=== PATIENT | female | born 1945 | race Asian ===

== ENCOUNTER → 2020-10-25 12:57 | Outpatient (BNVA) | payer MEDICAID, SELFPAY | PROVIDERS: PCP Internal Medicine; Visit Provider Nurse Practitioner Family ==

== ENCOUNTER 2020-10-30 11:41 | Outpatient (REF) | payer MEDICAID, SELFPAY ==
[2020-10-30 12:17] LABS: MANUAL DIFF FLAG NO
[2020-10-30 12:20] LABS: Basophils Percent Auto 0.6 % (0-2); Eosinophils Absolute Auto 0.3 X10*3/uL (0.0-0.4); Hematocrit 39.8 % (37-47); Hemoglobin 12.9 g/dl (12.0-16.0); Imm Gran Abs Auto 0.01 X10*3/uL (0.00-0.03); Imm Gran Pct Auto 0.2 % (0.0-0.4); Lymphocytes Absolute Auto 2.4 X10*3/uL (1.2-4.9); Lymphocytes Percent Auto 37.1 % (20-40); Mean Corpuscular HGB Conc 32.4 g/dl (31.0-35.0); Mean Corpuscular Hemoglobin 26.6 pg (27.0-33.0); Mean Corpuscular Volume 82.1 fL (80-98); Mean Platelet Volume 9.9 fL (9.4-12.3); Monocytes Absolute Auto 0.5 X10*3/uL (0.1-1.2); Monocytes Percent Auto 7.6 % (2-11); Neutrophils Absolute Auto 3.2 X10*3/uL (2.0-8.3); Neutrophils Percent Auto 49.5 % (45-73); Platelet Count 260 X10*3/uL (160-400); Red Blood Count 4.85 X10*6/uL (4.20-5.50); Red Cell Distribution Width 12.9 % (11.0-16.0); White Blood Count 6.4 X10*3/uL (4.8-10.8)
[2020-10-30 12:46] LABS: Estimated Average Glucose 126 mg/dL
[2020-10-30 12:47] LABS: Alanine Aminotransferase 22 U/L (0-31); Albumin Level 4.5 g/dL (3.5-5.0); Alkaline Phosphatase 59 U/L (39-117); Anion Gap 12 (12-20); Aspartate Amino Transferase 21 U/L (5-31); Bilirubin Total 1.2 mg/dL (0.0-1.0); Blood Urea Nitrogen 16 mg/dL (9-16); Calcium 9.7 mg/dL (8.4-10.2); Carbon Dioxide 32 mmol/L (22-29); Chloride 98 mmol/L (96-108); Cholesterol 210 mg/dL; Estimated Glomerular Filt Rate > 60; Glucose Random 101 mg/dL (60-115); HDL Cholesterol 61 mg/dL; LDL Cholesterol Calculated 117 mg/dl; Potassium 3.5 mmol/L (3.3-5.1); Sodium 138 mmol/L (135-145); Total Protein 7.8 g/dL (6.5-8.0); Triglycerides 161 mg/dL; Uric Acid 9.1 mg/dL (2.4-5.7)
[2020-10-30 13:12] LABS: Free T4 (Free Thyroxine) 1.26 ng/dL (0.71-1.85); Thyroid Stimulating Hormone 0.36 uIU/mL (0.32-4.0); Vitamin D 25-OH Total 39.8 ng/mL (>30)
[2020-10-30 13:28] LABS: Folate > 20.0 ng/mL (> or = 4.0); Vitamin B12 936 pg/mL (200-900)
== END 2020-10-30 11:42 | disposition home or self-care (01) ==
LOC: HO.LAB 11:41
PROVIDERS: PCP Internal Medicine; Visit Provider Internal Medicine
DX: E78.00 Pure hypercholesterolemia, unspecified (principal); R73.02 Impaired glucose tolerance (oral); I10 Essential (primary) hypertension
CPT/HCPCS: 36415; 80053; 80061; 82306; 82607; 82746; 83036; 84439; 84443; 84550; 85025

== ENCOUNTER 2020-12-11 09:01 | Day surgery (SDC) | payer MEDICAID, SELFPAY ==
[2020-12-11 09:12] VITALS: BP 148/72; PULSE 87; RESP 18; TEMP 36.3; O2SAT 99; BMI 25.0
--- NOTE | 2020-12-11 09:12 | HO.ANESPROP2 ---
[facility] Active Problems Active Problems: All Active Problems (Updated 10/09/20 @ 12:03 by Brenda Guadalupe MD) Tubular adenoma of colon (Acute) Impaired glucose tolerance (Acute) Hypercholesterolemia (Acute) HTN (hypertension) (Acute) Past Medical History Medical History GERD (gastroesophageal reflux disease) HTN (hypertension) Hx of osteoporosis Hx of solitary pulmonary nodule Hypercholesterolemia Osteoporosis Ulnar neuropathy Vitamin D deficiency Family History Family History Father Hypertension Mother No problems noted. Brother Enlarged heart Surgical History Surgical History H/O colonoscopy History of appendectomy History of cholecystectomy Social History Social History Household Members: Children Alcohol intake: current Alcohol intake frequency: does not drink Smoking Status: Never smoker Use of substances other than those prescribed or required for medical reasons: No Have you been hit, kicked, punched, or otherwise hurt by someone within the past year? If so, by whom?: No Advance Directives: No Advance Directives Information Provided: Yes Recently lost weight without trying: No Meds Allergies Allergy/AdvReac Type Severity Reaction Status Date / Time No Known Allergies Allergy Verified 10/25/20 12:57 [No Known Allergies*] Active Medications: Current Medications Generic Name Dose Route Start Last Admin Trade Name Freq PRN Reason Stop Dose Admin Lactated Ringer's 1,000 mls @ 50 mls/hr 12/11/20 07:30 Lr IV .Q20H GRECIA Exam Exam Date and Time: December 11, 2020 0912 Airway Mallampati Class: II TM Dist: >3cm Neck ROM: Full Heart: RRR Lungs: CTA Assessment and Plan Assessment Anesthesia Assessment: Anesthesia Plan Discussed and Chart Reviewed Final Anesthetic Review NPO: Yes ASA Class: II Final Preanesthetic Review: Meds/Allgs Chart Reviewed, Consent Obtained/Reviewed and Anes Risks/Benef Reviewed Patient Risk: Low Procedure Risk: Low Anesthetic Plan Anesthetic Plan: MAC: Disposition: Standard PACU
[2020-12-11] MEDS: Lactated Ringers 1,000 ML 50 ML IV (09:23)
--- NOTE | 2020-12-11 09:26 | PC.NURSE ---
40unce of water 0800 wait to 1000
--- NOTE | 2020-12-11 09:38 | MHC.SHP ---
Pre-Procedural Eval Section B Chief Complaint: screening Relevant Family History (Specify if Yes): No Relevant Social History: None Present Medications: see Short Stay Collaborative assessment Medical History: Significant History (GERD (gastroesophageal reflux disease) HTN (hypertension) Hx of osteoporosis Hx of solitary pulmonary nodule Hypercholesterolemia Osteoporosis Ulnar neuropathy Vitamin D deficiency) History of Previous Operations: Relevant previous surgery/procedure and date(s) (appendectoym, cholecystectomy) Allergies: Allergies Allergy/AdvReac Type Severity Reaction Status Date / Time No Known Allergies Allergy Verified 10/25/20 12:57 [No Known Allergies*] Review of Systems Sugical H&P ROS: Negative: Constitution, Cardiovascular, Respiratory, Neurological, Psychiatric, Hem-Onc, Allergic/Immunologic, Gastrointestinal, Genitourinary, Musculoskeletal, Integumentary, Endocrine and Eyes/Ears/Nose/Throat Exam Surgical H&P Exam: Normal: HEENT, Normal: Heart, Normal: Lungs, Normal: Extremities, Normal: Abdomen, Normal: Skin and Normal: Neurological Plan Diagnosis/Plan: Unchanged I have reviewed the history and physical and performed a pertinent physical examination on my patient. No changes have occurred unless specified.
--- NOTE | 2020-12-11 10:45 | PM.OP ---
Brief Operative Note Date of Service: 12/11/20 Pre-op diagnosis: hx of colon polyp Post-op diagnosis: same Procedure: see op note Surgeon: Shani Romero MD Anesthesia: MAC Estimated blood loss (mL): 0 Condition: stable Disposition: PACU
--- NOTE | 2020-12-11 10:46 | P.OP_ITS ---
Operative Note Operative Note Date of Service: 12/11/20 Narrative: Operative Information Procedure Description: Colonoscopy COLONOSCOPY Instrument: Olympus variable stiffness pediatric scope 190L Colonoscopy Monitoring: Vital signs and clinical assessment, continuous EKG monitoring, Pulse oximetry, Carbon Dioxide monitoring and blood pressure monitoring were done throughout the procedure. Colon withdrawal time was 9 minutes. Procedure: The patient was placed in the left lateral decubitis position and pre-procedure medications were administered. After a digital rectal examination of the ano-rectum, the video colonoscope was inserted into the rectum and advanced through the colon to the cecum/TI. The colonoscope was slowly withdrawn in a retrograde panoramic fashion and the colon mucosa was carefully examined including a retroflexed view of the rectum. Findings and interventions are described below. Procedure Difficulty: easy Findings: scattered small diverticula in colon left and right side Terminal Ileum-normal Cecum:normal Ascending Colon: x 3 sessile polyps noted measuring 8-12 mm, 2 removed with cold snare and one with forceps Transverse Colon -normal Descending Colon:normal Sigmoid Colon: normal Rectum: Retroflexion with moderate sized internal hemorrhoids, grade I with skin tag Anorectum - normal Colon preparation: [place] Bowel Preparation Scale Right colon; 2 Transverse colon: 2 Left colon; 2 (0 = Unprepared colon segment with mucosa not seen due to solid stool that cannot be cleared. 1 = Portion of mucosa of the colon segment seen, but other areas of the colon segment not well seen due to staining, residual stool and/or opaque liquid. 2 = Minor amount of residual staining, small fragments of stool and/or opaque liquid, but mucosa of colon segment seen well. 3 = Entire mucosa of colon segment seen well with no residual staining, small fragments of stool or opaque liquid) Impression and Post Procedure Diagnosis: polyps internal hemorrhoids diverticular disease Plan: High fiber diet leaflet Avoid straining at stool, epsom salts and sitz bath, anusol supps or cream as needed Repeat Colonoscopy in 5 years if health allows or earlier if clinically indicated Above findings were reviewed with the patient and relevant handouts were provided if indicated.
[2020-12-11 10:50] VITALS: BP 104/48; PULSE 78; RESP 16; TEMP 36.7; O2SAT 96
[2020-12-11 11:05] VITALS: BP 101/62; PULSE 80; RESP 16; O2SAT 99
== END 2020-12-11 11:46 | disposition home or self-care (01) ==
PROVIDERS: PCP Internal Medicine; Visit Provider Internal Medicine Gastroenterology
PROC: 0DJD8ZZ Inspection of Lower Intestinal Tract, Via Natural or Artificial Opening Endoscopic (ICD-10-PCS; CPT 45378; principal; 2020-12-11 10:00)
DX: Z12.11 Encounter for screening for malignant neoplasm of colon (principal); D12.2 Benign neoplasm of ascending colon; K57.30 Diverticulosis of large intestine without perforation or abscess without bleeding; K64.0 First degree hemorrhoids
CPT/HCPCS: 45385; 45380; 88305

== ENCOUNTER → 2020-12-25 14:02 | Outpatient (BNVA) | payer MEDICAID, SELFPAY | PROVIDERS: PCP Internal Medicine; Visit Provider Nurse Practitioner Family ==

== ENCOUNTER 2021-01-03 09:51 | Outpatient (REF) | payer MEDICAID, SELFPAY ==
[2021-01-03 11:36] LABS: MANUAL DIFF FLAG SCAN; PLT CLUMP 1; SCAN SMEAR FLAG 1
[2021-01-03 11:38] LABS: Basophils Percent Auto 0.8 % (0-2); Eosinophils Absolute Auto 0.1 X10*3/uL (0.0-0.4); Eosinophils Percent Auto 2.3 % (0-4); Hematocrit 41.9 % (37-47); Hemoglobin 13.1 g/dl (12.0-16.0); Lymphocytes Absolute Auto 1.9 X10*3/uL (1.2-4.9); Lymphocytes Percent Auto 39.6 % (20-40); Mean Corpuscular HGB Conc 31.3 g/dl (31.0-35.0); Mean Corpuscular Hemoglobin 26.4 pg (27.0-33.0); Mean Corpuscular Volume 84.5 fL (80-98); Monocytes Absolute Auto 0.4 X10*3/uL (0.1-1.2); Neutrophils Absolute Auto 2.4 X10*3/uL (2.0-8.3); Neutrophils Percent Auto 49.3 % (45-73); Red Blood Count 4.96 X10*6/uL (4.20-5.50); Red Cell Distribution Width 12.7 % (11.0-16.0); White Blood Count 4.9 X10*3/uL (4.8-10.8)
[2021-01-03 11:46] LABS: Estimated Average Glucose 120 mg/dL; Hemoglobin A1C 139.9684 umol/L; Hemoglobin A1c % 5.8 %
[2021-01-03 11:56] LABS: SLIDE REVIEW VERIFIED
[2021-01-03 12:28] LABS: Alanine Aminotransferase 14 U/L (0-31); Albumin Level 4.4 g/dL (3.5-5.0); Alkaline Phosphatase 56 U/L (39-117); Anion Gap 15 (12-20); Aspartate Amino Transferase 17 U/L (5-31); Bilirubin Total 1.1 mg/dL (0.0-1.0); Blood Urea Nitrogen 21 mg/dL (9-16); Calcium 9.6 mg/dL (8.4-10.2); Carbon Dioxide 28 mmol/L (22-29); Chloride 101 mmol/L (96-108); Cholesterol 205 mg/dL; Estimated Glomerular Filt Rate 58; Glucose Random 111 mg/dL (60-115); HDL Cholesterol 59 mg/dL; LDL Cholesterol Calculated 109 mg/dl; Potassium 3.3 mmol/L (3.3-5.1); Sodium 141 mmol/L (135-145); Total Protein 7.6 g/dL (6.5-8.0); Triglycerides 186 mg/dL
[2021-01-03 12:51] LABS: Free T4 (Free Thyroxine) 1.06 ng/dL (0.71-1.85); Thyroid Stimulating Hormone 0.37 uIU/mL (0.32-4.0); Vitamin D 25-OH Total 34.8 ng/mL (>30)
[2021-01-03 12:54] LABS: Vitamin B12 686 pg/mL (200-900)
== END 2021-01-03 09:52 | disposition home or self-care (01) ==
LOC: HO.HMGCLDS 09:51
PROVIDERS: PCP Internal Medicine; Visit Provider Internal Medicine
DX: I10 Essential (primary) hypertension (principal); E78.00 Pure hypercholesterolemia, unspecified; R73.02 Impaired glucose tolerance (oral)
CPT/HCPCS: 36415; 80053; 80061; 82306; 82607; 82746; 83036; 84439; 84443; 85025

== ENCOUNTER 2021-10-16 10:33 | Outpatient (REF) | payer MEDICAID, SELFPAY ==
[2021-10-16 11:29] LABS: Appearance Urine CLEAR; Color Urine YELLOW; Glucose Urine UA NEG (NEG); Leukocyte Esterase Urine 1+ (NEG); Nitrite Urine NEG (NEG); Specific Gravity - Urine 1.025 (1.005-1.025); Urine Blood TRACE (NEG); Urine Ketones NEG (NEG); Urine Protein NEG (NEG-TRACE)
[2021-10-16 12:15] LABS: Bacteria Urine TRACE /LPF; Squamous Epithelial Cell Urine 2+ /LPF
== END 2021-10-16 10:34 | disposition home or self-care (01) ==
LOC: HO.LAB 10:33
PROVIDERS: PCP Internal Medicine; Visit Provider Internal Medicine
DX: I10 Essential (primary) hypertension (principal)
CPT/HCPCS: 81001

== ENCOUNTER → 2021-10-30 08:44 | Outpatient (REF) | payer MEDICAID, SELFPAY ==
--- NOTE | 2021-10-30 11:33 | CA_ITS ---
Acquisition Time: 2021-10-30 08:53:11 Total Exercise Time: 00:04:45 Test Indications: chest pain Medications: Protocol: ANIYAH Max HR: 137 BPM 94% of Pred: 145 BPM Max BP: 168/082 mmHG Max Work Load: 6.7 METS Exercise stress test with exercise 4 min 45 sec of Aniyah protocol, with report of moderate sob, no chest discomfort, with isolated PACs, with normotensive response to exercise, with EKG changes meeting criteria for ischemia, at least [address] depression V4-V5 with gradual improvement in recovery, with slight downslope of ST V3 and V6 in recovery as well. Test reviewed with Dr Walker. Message sent to Dr Guadalupe with recommendation for exercise nuclear stress test for further evaluation. Referred By: Brenda Guadalupe Overread By: LIDIA COLLADO
== END ==
LOC: HO.CARD 08:44
PROVIDERS: PCP Internal Medicine; Visit Provider Internal Medicine
DX: R07.9 Chest pain, unspecified (principal)
CPT/HCPCS: 93017

== ENCOUNTER → 2021-11-21 08:03 | Outpatient (REF) | payer MEDICAID, SELFPAY ==
--- NOTE | ~2021-11-21 | NM_ITS ---
Myocardial perfusion study Indication: Chest pain to evaluate for myocardial ischemia Technique: The patient was brought in for a Lexiscan perfusion study on 11/21/2021. Patient performed low-level exercise and was injected 0.4 mg of Lexiscan intravenously. Within a minute of injection, 25 mCi of sestamibi was given intravenously. Images were obtained using the SPECT gamma camera interlaced with the gating device. Images were obtained in supine position. Resting perfusion study was performed on 11/22/2021. Patient was administered 25 mCi of sestamibi intravenously at rest. Images were then obtained in supine position. Images obtained with and without CT attenuation. Total DLP 73 mGy-cm. Images were processed with the software and compared side to side in short axis, horizontal long axis and vertical long axis views. Findings: The stress perfusion study is suboptimal due to intense diaphragmatic uptake in the retrocardiac area either from as well as normal liver all interference of inferior wall uptake and visualization of reduced uptake throughout myocardium. This showed diffusely reduced uptake throughout the entire myocardium except for the inferior wall, this may be due to interference by subdiaphragmatic uptake. Both on attenuated as well as non attenuated images. The gated study shows normal LV systolic function with calculated LVEF of 63%. LV cavity is normal size. The gated study shows normal systolic wall thickening and contraction of segments. Resting study also shows severely reduced uptake in the basal inferior wall. This shows an attenuated images normal uptake of radiotracer in all segments of LV myocardium.. Gating at rest reveals normal systolic wall motion with ejection fraction at 73%. The findings are consistent with reversible defect on attenuated corrected images, due to stress images being suboptimal due to intense subdiaphragmatic uptake. NM/NM bunny perf SPECT rest & str Impression: 1. Myocardial perfusion imaging study shows nondiagnostic study 2. Gated LVEF is 63% 3. Transient ischemic dilatation not present EKG is nondiagnostic for hernia. Consider alternative imaging such as coronary CTA if there is coronary artery disease
--- NOTE | 2021-11-21 08:07 | CA_ITS ---
Acquisition Time: 2021-11-21 08:11:12 Total Exercise Time: 00:02:00 Test Indications: Abnormal Treadmill Test Medications: AMLODIPINE LISINOPRIL METOPROLOL OMEPRAZOLE SIMVASTATIN Protocol: LEXISCAN Max HR: 122 BPM 84% of Pred: 145 BPM Max BP: 142/066 mmHG Max Work Load: 1.0 METS Pharmacological stress test with Lexiscan injection, while sitting and kicking her legs, without anginal symptoms, without arrythmia, with normotensive response to injection, with nondiagnostic EKG for ischemia. In recovery she reported feeling nausea that was treated with Aminophylline 75mg IVP to reverse Lexiscan with resolution of symptom. Nuclear images pending. Test reviewed with Dr Walker. Referred By: Brenda Guadalupe Overread By: LIDIA COLLADO
== END ==
LOC: HO.CARD 08:03
PROVIDERS: PCP Internal Medicine; Visit Provider Internal Medicine
DX: R07.9 Chest pain, unspecified (principal)
CPT/HCPCS: 78452; 93017; A9500; J0280; J2785

== ENCOUNTER 2022-01-07 09:55 | Outpatient (REF) | payer MEDICAID, SELFPAY ==
[2022-01-07 10:14] LABS: MANUAL DIFF FLAG NO
[2022-01-07 11:07] LABS: Basophils Percent Auto 0.7 % (0-2); Eosinophils Absolute Auto 0.1 X10*3/uL (0.0-0.4); Eosinophils Percent Auto 2.2 % (0-4); Hematocrit 39.3 % (37.0-47.0); Hemoglobin 12.5 g/dl (12.0-16.0); Lymphocytes Absolute Auto 1.4 X10*3/uL (1.2-4.9); Lymphocytes Percent Auto 32.6 % (20-40); Mean Corpuscular HGB Conc 31.8 g/dl (31.0-35.0); Mean Corpuscular Hemoglobin 26.2 pg (27.0-33.0); Mean Corpuscular Volume 82.4 fL (80.0-98.0); Mean Platelet Volume 9.6 fL (9.4-12.3); Monocytes Absolute Auto 0.4 X10*3/uL (0.1-1.2); Monocytes Percent Auto 8.9 % (2-11); Neutrophils Absolute Auto 2.3 x10*3/uL (2.0-8.3); Neutrophils Percent Auto 55.6 % (45-73); Platelet Count 260 X10*3/uL (160-400); Red Blood Count 4.77 X10*6/uL (4.20-5.50); Red Cell Distribution Width 13.2 % (11.0-16.0); White Blood Count 4.1 X10*3/uL (4.8-10.8)
[2022-01-07 11:18] LABS: Estimated Average Glucose 117 mg/dL; Hemoglobin A1c % 5.7 %
[2022-01-07 11:44] LABS: Alanine Aminotransferase 12 U/L (0-31); Albumin Level 4.2 g/dL (3.5-5.0); Alkaline Phosphatase 67 U/L (39-117); Anion Gap 11 (12-20); Aspartate Amino Transferase 17 U/L (5-31); Bilirubin Total 1.1 mg/dL (0.0-1.0); Blood Urea Nitrogen 14 mg/dL (9-16); Calcium 9.5 mg/dL (8.4-10.2); Carbon Dioxide 29 mmol/L (22-29); Chloride 105 mmol/L (96-108); Cholesterol 196 mg/dL; Estimated Glomerular Filt Rate > 60; Glucose Random 112 mg/dL (60-115); HDL Cholesterol 55 mg/dL; LDL Cholesterol Calculated 106 mg/dl; Potassium 3.8 mmol/L (3.3-5.1); Sodium 141 mmol/L (135-145); Total Protein 7.4 g/dL (6.5-8.0); Triglycerides 179 mg/dL
[2022-01-07 11:55] LABS: Free T4 (Free Thyroxine) 1.12 ng/dL (0.71-1.85); Thyroid Stimulating Hormone 0.44 uIU/mL (0.32-4.0); Vitamin D 25-OH Total 36.9 ng/mL (>30)
[2022-01-07 12:10] LABS: Folate 19.8 ng/mL (> or = 4.0); Vitamin B12 520 pg/mL (200-900)
== END 2022-01-07 09:56 | disposition home or self-care (01) ==
LOC: HO.LAB 09:55
PROVIDERS: PCP Internal Medicine; Visit Provider Internal Medicine
DX: E78.00 Pure hypercholesterolemia, unspecified (principal); I10 Essential (primary) hypertension; R73.02 Impaired glucose tolerance (oral)
CPT/HCPCS: 36415; 80053; 80061; 82306; 82607; 82746; 83036; 84439; 84443; 85025

== ENCOUNTER → 2022-01-08 14:10 | Outpatient (BNVA) | payer MEDICAID, SELFPAY | PROVIDERS: PCP Internal Medicine; Referring Provider Internal Medicine; Visit Provider Internal Medicine | DX: R07.2 Precordial pain (principal); R06.02 Shortness of breath; I10 Essential (primary) hypertension | CPT/HCPCS: 93005; 99202 ==

== ENCOUNTER → 2022-02-20 10:20 | Outpatient (REF) | payer MEDICAID, SELFPAY ==
--- NOTE | 2022-02-20 10:27 | CA_ITS ---
Transthoracic Echocardiogram Patient (Last, First, Middle): Tomasa De Souza M Gender: Female Date of : 1945 Age: 77 Procedure Date: 02/20/2022 Procedure Type: Transthoracic Echocardiogram Location: OP Height: 152.4 cm Weight: 61.24 kg BSA: 1.58 m2 Heart Rate: 76 bpm BP: 132 / 70 mmHg Template Inspector: SB Referring MD: Dann Duran MD Symptoms: R07.2 - Precordial pain Study Quality: Adequate ECG Rhythm: Sinus Conclusions: - The left ventricular systolic function is normal. The calculated ejection fraction is 69% by biplane method. - No obvious valvular pathology seen on this study. Findings Left Ventricle Normal left ventricular cavity size. The left ventricular systolic function is normal. The calculated ejection fraction is 69% by biplane method. There is no evidence of regional wall motion abnormalities. Diastolic function is normal for age. There is mild septal asymmetric hypertrophy. LV peak GLS 17..5%. Right Ventricle Normal right ventricular cavity size and systolic function. Atria The left atrium is mildly dilated. The right atrium is normal in size. Aortic Valve There is a normal trileaflet aortic valve. There is no aortic valve stenosis. There is trace (trivial) aortic valve regurgitation. Mitral Valve The mitral valve appears normal. There is trace mitral valve regurgitation. There is no mitral valve stenosis. Pulmonic Valve The pulmonic valve is likely normal. Tricuspid Valve Normal tricuspid valve structure. There is mild tricuspid valve regurgitation. The pulmonary artery systolic pressure is normal. Great Vessels The aortic annulus, sinuses of valsalva, and asc aorta are normal in size. Small plaque is seen in the sino tubular ridge. Venous The inferior vena cava is normal in size and collapses greater than 50% with inspiration. Pericardium/Pleural There is no evidence of pericardial effusion. Prior Study Comparison No prior study available for comparison. Recommendations, Care & Conclusions No obvious valvular pathology seen on this study. Measurements 2D Linear Measurements IVSd: 1.14 0.6-0.9/0.6-1.0 cm LVIDd: 4.04 3.9-5.3/4.2-5.9 cm LVIDd Index: 2.56 2.4-3.2/2.2-3.1 cm/m2 LVIDs: 2.35 2.0-3.6 cm LVPWd: 0.65 0.7-1.1 cm LA Diam: 3.70 2.7-3.8/3.0-4.0 cm LAIDs Index: 2.34 1.5-2.3 cm/m2 LV Mass: 137.61 67-162/88-224 g LV Mass Index: 87.10 43-95/49-115 g/m2 LVOT Diam: 1.80 3.0+(-)1.3 cm 2D Systolic Function EF 4C: 65.50 >55% EF 2C: 72.10 >55% EF BiP: 69.10 >55% Mitral Valve MV Pk E: 0.77 MV PK A: 0.84 MV Decel Time: 214.00 E/A: 0.90 E'Lateral: 7.18 E'Medial: 4.90 E/E' Med: 15.70 E/E' Lat: 10.70 PHT: 63.00 MVA PHT: 3.49 Decel Sargent: 3.61 Aortic Valve AoV Pk Jc: 1.59 AoV Mn Jc: 1.03 AoV VTI: 0.33 AoV Pk Grad: 10.00 Aov Mn Grad: 5.00 MARCIA Cont.VTI: 1.81 LVOT LVOT Pk Jc: 0.99 LVOT Mn Jc: 0.71 LVOT VTI: 0.24 LVOT Pk Grad: 4.00 LVOT Mn Grad: 2.00 LVOT Diam: 1.80 LVOT Area: 2.54 Diastolic Function MV Pk E: 0.77 MV Pk A: 0.84 E/A: 0.90 E'Medial: 4.90 E/E' Med: 15.70 E' Laterial: 7.18 E/E' Lat: 10.70 Right Ventricle TAPSE (mm): 21.70 TVS' Jc: 9.60 Tricuspid Valve TR Pk Jc: 2.48 TR Pk Grad: 25.00 RA Press: 3.00 RVSP: 28.00 Great Vessels Aorta Sinus of Valsalva: 2.87 2.0-3.[address] Ridge: 2.19 1.7-3.4 cm Ao Asc: 2.90 2.1-3.4 cm Pulmonary Valve PV Pk Jc: 0.86 Peak PV Grad: 3.00 Updated in Other Vendor System with Status of Final Dann Duran MD electronically signed on 02/23/2022 1:00:32 PM with status of Final
== END ==
LOC: HO.CARD 10:20
PROVIDERS: PCP Internal Medicine; Visit Provider Internal Medicine
DX: R07.2 Precordial pain (principal)
CPT/HCPCS: 93306; 93356

== ENCOUNTER → 2022-03-19 13:10 | Outpatient (BNVA) | payer MEDICAID, SELFPAY | PROVIDERS: PCP Internal Medicine; Referring Provider Internal Medicine; Visit Provider Nurse Practitioner Family | DX: R07.2 Precordial pain (principal); I10 Essential (primary) hypertension; R93.89 Abnormal findings on diagnostic imaging of other specified body structures | CPT/HCPCS: 99212 ==

== ENCOUNTER 2022-03-29 09:23 | Outpatient (REF) | payer MEDICAID, SELFPAY ==
--- NOTE | ~2022-03-29 | MM_ITS ---
EXAMINATION: BONE DENSITOMETRY CLINICAL INDICATION: Osteoporosis. COMPARISON: Previous BD dated 11/10/2019 and baseline BD dated 07/19/2010. TECHNIQUE: Using a [employer] DXA System (software version: 13.1) manufactured by [employer], dual-energy x-ray absorptiometry was performed of the lumbar spine and left hip. The images are of good technical quality. Summary results are attached. FINDINGS: AP SPINE L1-L4: Current: BMD 0.893 g/cm2, Z-score -0.3, T-score -2.4, osteopenia, 4.2% decrease from previous, 3.1% decrease from baseline (<5% change is not significant). Prior: BMD 0.932 g/cm2. Baseline: BMD 0.922 g/cm2. LEFT FEMUR, NECK: Current: BMD 0.622 g/cm2, Z-score -0.8, T-score -3.0, osteoporosis. Prior: BMD 0.751 g/cm2. Baseline: BMD 0.747 g/cm2. LEFT FEMUR, TOTAL: Current: BMD 0.685 g/cm2, Z-score -0.5, T-score -2.6, osteoporosis, 16.4% decrease from previous, 14.8% decrease from baseline (<5% change is not significant). Prior: BMD 0.819 g/cm2. Baseline: BMD 0.804 g/cm2. IDENTIFIED RISK FACTORS: Menopause, Thiazide. HISTORY OF FRACTURE: None listed. MEDICATIONS: Calcium, vitamin D. MM/XR DEXA axial skeleton IMPRESSION: 1. DIAGNOSIS: Osteoporosis based on the lowest T-score value of -3.0 in the femoral neck applying World Health Organization criteria. 2. 10-YEAR FRACTURE RISK PREDICTION, FRAX: According to the guidelines, FRAX calculation should only be performed on patients in the osteopenia bone density category. Therefore, FRAX was not performed on this patient. 3. Treatment Recommendations: NOF guidelines recommend consideration for treatment in postmenopausal women and men age 50 and older presenting with the following: -A hip or vertebral (clinical or morphometric) fracture. -T-score less than or equal to -2.5 at the femoral neck or spine after appropriate evaluation to exclude secondary causes. -Low bone mass at the hip or spine and a 10-year fracture probability by FRAX of greater than or equal to 3% for hip fracture or greater than or equal to 20% for major osteoporotic fracture based on the [place] adapted WHO algorithm. 4. Other Recommendations: All treatment decisions require clinical judgment and consideration of individual patient factors, including patient preferences, comorbidities, previous drug use, risk factors not captured in the FRAX model (e.g. frailty, falls, vitamin D deficiency, increased bone turnover, interval significant decline in bone density) and possible under or overestimation of fracture risk by FRAX. Additional medical evaluation for secondary cause of low bone mineral density may be appropriate. FUTURE SCAN RECOMMENDATION: People with diagnosed cases of osteoporosis or at high risk for fracture should have regular bone mineral density tests. For patients eligible for Medicare, routine testing is allowed once every 2 years. The testing frequency can be increased to one year for patients who have rapidly progressing disease, those who are receiving or discontinuing medical therapy to restore bone mass, or have additional risk factors.
== END 2022-03-29 09:24 | disposition home or self-care (01) ==
LOC: HO.MAMMO 09:23
PROVIDERS: Visit Provider Internal Medicine
DX: M81.0 Age-related osteoporosis without current pathological fracture (principal); R91.1 Solitary pulmonary nodule
CPT/HCPCS: 77080; 99202

== ENCOUNTER 2022-04-17 09:45 | Outpatient (REF) | payer MEDICAID, SELFPAY ==
--- NOTE | ~2022-04-17 | CT_ITS ---
EXAMINATION: CT CHEST WITHOUT CONTRAST CLINICAL INFORMATION: Pulmonary nodule COMPARISON: Previous chest x-ray most recent February 2019. CT abdomen and pelvis April 2009 TECHNIQUE: Multidetector volumetric CT imaging of the chest was done. Axial MIP volume rendering provided. Sagittal and coronal reformatted images were obtained. This CT examination was performed using dose optimization techniques as appropriate, variously including the following: *Automated exposure control *Adjustment of mA and/or kV according to patient size (this includes techniques or standardized protocols for targeted exams where dose is matched to indication/reason for exam; i.e. extremities or head) *Use of iterative reconstruction technique DLP: 96 mGy-cm FINDINGS: LUNGS: There is a 2 mm calcified left upper lobe nodule axial image 191 series 7. There is a 5 mm calcified left upper lobe nodule axial image 220 series 7. This is a 7 mm noncalcified left upper lobe nodule axial image 273 series 7. MEDIASTINUM: There is a 2 cm nodule in the inferior right thyroid gland. There may be other smaller left thyroid nodules. No enlarged hilar or mediastinal lymph nodes. Normal heart size. Mild coronary artery and thoracic aortic calcification. No pericardial effusion. PLEURA: There is no pleural effusion. No pleural mass or thickening. AXILLA: No lymphadenopathy. UPPER ABDOMEN: 1 cm low-attenuation lesion in the right lobe liver that is stable from 2009 exam probably represents a cyst. There is low-attenuation seen posteriorly in the neck of the pancreas measuring 8 mm. Axial image 49 series 3. This may represent partial volume averaging the adjacent fat. OSSEOUS STRUCTURES: There is a T8 vertebral body hemangioma. CT/CT chest wo con IMPRESSION: Calcified and noncalcified left upper lobe nodules. The largest noncalcified nodule can be going back to oldest chest x-ray from 2018 and is probably unchanged. Mild coronary artery calcification. Stable liver cyst. 8 mm low-attenuation lesion in the neck of the pancreas, question representing partial volume averaging with the adjacent fat. Follow-up CT of the abdomen or MRI of the pancreas recommended. 2 cm right thyroid nodule. Follow-up thyroid ultrasound recommended. Fleischner guidelines were followed.
[2022-04-17 10:37] LABS: MANUAL DIFF FLAG NO
[2022-04-17 10:53] LABS: Basophils Percent Auto 0.7 % (0-2); Eosinophils Absolute Auto 0.1 X10*3/uL (0.0-0.4); Hemoglobin 13.4 g/dl (12.0-16.0); Lymphocytes Absolute Auto 1.9 X10*3/uL (1.2-4.9); Lymphocytes Percent Auto 35.4 % (20-40); Mean Corpuscular HGB Conc 31.9 g/dl (31.0-35.0); Mean Corpuscular Hemoglobin 25.9 pg (27.0-33.0); Mean Corpuscular Volume 81.2 fL (80.0-98.0); Mean Platelet Volume 9.4 fL (9.4-12.3); Monocytes Absolute Auto 0.5 X10*3/uL (0.1-1.2); Monocytes Percent Auto 8.3 % (2-11); Neutrophils Absolute Auto 2.9 x10*3/uL (2.0-8.3); Neutrophils Percent Auto 53.6 % (45-73); Platelet Count 270 X10*3/uL (160-400); Red Blood Count 5.17 X10*6/uL (4.20-5.50); White Blood Count 5.4 X10*3/uL (4.8-10.8)
[2022-04-17 10:54] LABS: Appearance Urine CLEAR; Color Urine STRAW; Glucose Urine UA NEG (NEG); Leukocyte Esterase Urine 2+ (NEG); Nitrite Urine NEG (NEG); Specific Gravity - Urine <= 1.005 (1.005-1.025); Urine Blood TRACE (NEG); Urine Ketones NEG (NEG); Urine Protein NEG (NEG-TRACE)
[2022-04-17 11:12] LABS: Bacteria Urine 1+ /LPF; Squamous Epithelial Cell Urine 1+ /LPF
[2022-04-17 13:57] LABS: Estimated Average Glucose 126 mg/dL; Hemoglobin A1C 149.9689 umol/L
[2022-04-17 14:15] LABS: Thyroid Stimulating Hormone 0.45 uIU/mL (0.32-4.0)
[2022-04-17 14:17] LABS: Alanine Aminotransferase 20 U/L (0-31); Albumin Level 4.6 g/dL (3.5-5.0); Alkaline Phosphatase 74 U/L (39-117); Anion Gap 14 (12-20); Aspartate Amino Transferase 20 U/L (5-31); Bilirubin Total 0.8 mg/dL (0.0-1.0); Blood Urea Nitrogen 16 mg/dL (9-16); Calcium 9.6 mg/dL (8.4-10.2); Carbon Dioxide 29 mmol/L (22-29); Chloride 103 mmol/L (96-108); Cholesterol 229 mg/dL; Estimated Glomerular Filt Rate 56; Glucose Random 108 mg/dL (60-115); HDL Cholesterol 54 mg/dL; LDL Cholesterol Calculated 118 mg/dl; Potassium 3.9 mmol/L (3.3-5.1); Sodium 142 mmol/L (135-145); Total Protein 7.9 g/dL (6.5-8.0); Triglycerides 285 mg/dL
== END 2022-04-17 09:46 | disposition home or self-care (01) ==
LOC: HO.CT 09:45
PROVIDERS: Absent Provider Internal Medicine; PCP Internal Medicine; Visit Provider Internal Medicine Pulmonary Disease
DX: R91.1 Solitary pulmonary nodule (principal); E78.00 Pure hypercholesterolemia, unspecified; R73.02 Impaired glucose tolerance (oral)
CPT/HCPCS: 36415; 71250; 80053; 80061; 81001; 83036; 84443; 85025

== ENCOUNTER 2022-05-09 12:22 | Outpatient (REF) | payer MEDICAID, SELFPAY ==
--- NOTE | ~2022-05-09 | MR_ITS ---
EXAMINATION: MR ABDOMEN WITHOUT AND WITH CONTRAST CLINICAL INFORMATION: Disease of the pancreas COMPARISON: CT abdomen pelvis 06/22/2009, CT chest 04/17/2022 TECHNIQUE: MRI of the abdomen before and after the IV administration of 8.5 mL of Gadavist was obtained using routine sequences. FINDINGS: Please note the exam is technically limited by the [id number] and portions of the liver, spleen, stomach were not included in the [id number] on multiple sequences. LUNG BASES: The visualized lung bases are unremarkable. KIDNEYS AND URETERS: Unremarkable. GALLBLADDER: Surgically absent. LIVER AND BILIARY TREE: Loss of signal on opposed phase imaging compatible with hepatic steatosis. Benign-appearing cyst in the right hepatic lobe. Areas of arterial phase hyperenhancement which are predominantly peripheral although some appear more centrally for example in the right hepatic lobe measuring 0.9 cm, 100:28 and in the right hepatic lobe measuring 0.7 cm, 100:24, which fade to isointensity on delayed phases. Common bile duct measures 1 cm which is within upper limits of normal for the postcholecystectomy state with prominence of the central intrahepatic ducts which may be related to the postcholecystectomy state. PANCREAS: No suspicious pancreatic mass. The previously described questionable pancreatic lesion may have reflected volume averaging. No pancreatic duct dilatation. SPLEEN: Unremarkable ADRENAL GLANDS: Unremarkable GASTROINTESTINAL TRACT: Unremarkable. LYMPH NODES: No lymphadenopathy. VASCULAR: Unremarkable ABDOMINAL WALL: Unremarkable. OSSEOUS STRUCTURES: Grade 1 anterolisthesis of L5 on S1. MR/MR abdomen wo/w con IMPRESSION: No suspicious pancreatic mass. The previously described questionable pancreatic lesion may have reflected volume averaging. Multiple arterially hyperenhancing liver lesions relatively isointense on remainder phases measuring up to 0.9 cm in the right hepatic lobe are favored to reflect perfusional abnormalities or transient hepatic intensity differences. Other differential considerations could potentially include focal nodular hyperplasia or hepatic adenoma. In the absence of any known primary history of malignancy with propensity for hypervascular metastasis to the liver, metastases are considered unlikely. Given the background of hepatic steatosis, recommend a 3 to six-month follow-up MR to assess stability. Common bile duct measures 1 cm which is within upper limits of normal for the postcholecystectomy state with prominence of the central intrahepatic ducts which may be related to the postcholecystectomy state. Exam has technical limitations in portions of the upper abdomen were excluded from the [id number], as detailed above.
== END 2022-05-09 12:23 | disposition home or self-care (01) ==
LOC: HO.MRI 12:22
PROVIDERS: Visit Provider Internal Medicine
DX: K86.9 Disease of pancreas, unspecified (principal)
CPT/HCPCS: 74183; A9585

== ENCOUNTER 2022-06-20 08:45 | Outpatient (REF) | payer MEDICAID, SELFPAY ==
--- NOTE | ~2022-06-20 | MM_ITS ---
EXAMINATION: MM SCREENING DIGITAL BREAST TOMOSYNTHESIS, BILATERAL CLINICAL INFORMATION: Screening. Asymptomatic. The lifetime risk of breast cancer based on the Tyrer-Cuzick Model is 2%. COMPARISON: Mammography: 11/10/2019, 09/10/2018, 12/20/2016 TECHNIQUE: Digital breast tomosynthesis is performed in both the craniocaudal and mediolateral oblique views along with computer-aided detection (CAD). Synthesized 2D images are generated from the tomosynthesis. FINDINGS: There are scattered areas of fibroglandular density (ACR BI-RADS breast composition Category b). There are no significant masses, abnormal calcifications, or other abnormalities. Parenchymal pattern is similar to prior studies. There is no developing density or architectural abnormality. The axilla and skin contours are unremarkable. No significant changes. MM/MM tomosynthesis screening BI IMPRESSION: No mammographic evidence of malignancy. ASSESSMENT: BI-RADS 1: Negative RECOMMENDATION: Routine annual mammography screening. This patient's information was entered into a reminder system with a target due date for their next mammogram.
== END 2022-06-20 08:46 | disposition home or self-care (01) ==
LOC: HO.MAMMO 08:45
PROVIDERS: PCP Internal Medicine; Visit Provider Internal Medicine
DX: Z12.31 Encounter for screening mammogram for malignant neoplasm of breast (principal)
CPT/HCPCS: 36415; 77063; 77067; 82565; 84520

== ENCOUNTER 2022-06-20 09:13 | Outpatient (REF) | payer MEDICAID, SELFPAY ==
[2022-06-20 11:22] LABS: Blood Urea Nitrogen 14 mg/dL (9-16); Estimated Glomerular Filt Rate > 60
== END 2022-06-20 09:14 | disposition home or self-care (01) ==
LOC: HO.LAB 09:13
PROVIDERS: PCP Internal Medicine; Visit Provider Internal Medicine
DX: K86.9 Disease of pancreas, unspecified (principal)
CPT/HCPCS: 36415; 82565; 84520

== ENCOUNTER 2022-06-25 08:51 | Outpatient (REF) | payer MEDICAID, SELFPAY ==
--- NOTE | ~2022-06-25 | CT_ITS ---
EXAMINATION: CT CHEST WITHOUT CONTRAST CLINICAL INFORMATION: Solitary pulmonary nodule. COMPARISON: CT chest 05/04/2022. TECHNIQUE: Multidetector volumetric CT imaging of the chest was done. Axial MIP volume rendering provided. Sagittal and coronal reformatted images were obtained. This CT examination was performed using dose optimization techniques as appropriate, variously including the following: *Automated exposure control *Adjustment of mA and/or kV according to patient size (this includes techniques or standardized protocols for targeted exams where dose is matched to indication/reason for exam; i.e. extremities or head) *Use of iterative reconstruction technique DLP: 103 mGy-cm FINDINGS: OUTDOOR STUDIES DIRECTOR: Well-inflated lungs. LUNGS: There is a 2 mm nodule left upper lobe axial image 144/5, a 5 mm nodule left upper lobe axial image 168/5, and a noncalcified 7 mm nodule left upper lobe laterally axial image 204/5. They are the same size as before. No additional lung lung nodules visualized. The lungs are well expanded without acute consolidation or mass. MEDIASTINUM: The heart size and the great vessels are normal caliber. There is no pericardial effusion. Central trachea and the bronchi are widely patent. There is a hypodense nodule with calcification and mild enlargement of right thyroid lobe. The left thyroid lobe is unremarkable. CORONARY ARTERY CALCIFICATION: There is mild right coronary artery calcification seen. PLEURA: There is no pleural effusion, thickening or calcification. AXILLA: No lymphadenopathy. UPPER ABDOMEN: Visualized liver, spleen, pancreas and bilateral adrenal glands are unremarkable. OSSEOUS STRUCTURES: No aggressive lytic or sclerotic process seen. CT/CT chest wo IV con IMPRESSION: Stable calcified left upper lobe nodules seen. No new nodules visualized. Hypodense nodule with peripheral calcification in right lobe. Fleischner guidelines were followed.
== END 2022-06-25 08:52 | disposition home or self-care (01) ==
LOC: HO.CT 08:51
PROVIDERS: Visit Provider Internal Medicine Pulmonary Disease
DX: R91.1 Solitary pulmonary nodule (principal)
CPT/HCPCS: 71250

== ENCOUNTER → 2022-06-26 10:38 | Outpatient (BNVA) | payer MEDICAID, SELFPAY | PROVIDERS: PCP Internal Medicine; Visit Provider Internal Medicine Pulmonary Disease | DX: R91.1 Solitary pulmonary nodule (principal) | CPT/HCPCS: 99212 ==

== ENCOUNTER 2022-09-06 08:46 | Outpatient (REF) | payer MEDICAID, SELFPAY ==
--- NOTE | ~2022-09-06 | US_ITS ---
EXAMINATION: US THYROID CLINICAL INFORMATION: Nontoxic single thyroid nodule COMPARISON: None TECHNIQUE: Linear transducer grayscale and color Doppler examination with attention to the region of the thyroid. FINDINGS: SIZE: Measurements of the thyroid lobes and nodules are given in sagittal, anteroposterior and transverse dimensions respectively. Right Thyroid Lobe: 5.6 x 1.8 x 2.2 cm, volume 11.6 mL. Parenchyma: The gland echotexture is heterogeneous. Thyroid vascularity is increased. Left Thyroid Lobe: 4.4 x 1.6 x 1.5 cm, volume 5.5 mL. Parenchyma: The gland echotexture is heterogeneous. Thyroid vascularity is increased. Isthmus: 1.1 cm in maximum AP dimension. Estimated total number of nodules greater than or equal to 1 cm: 2. Berry Grower nodules are described as follows: 1. Location: Isthmus. Size: 1.8 x 1.0 x 1.5 cm, volume 1.3 mL. Nodule characteristics: Composition: Mixed cystic and solid (1). Echogenicity: Isoechoic (1). Shape: Not taller than wide (0). Margins: Ill-defined (0). Echogenic Foci: None (0). ACR TI-RADS total points: 2 ACR TI-RADS category: 2 2. Location: Right inferior. Size: 4.1 x 2.1 x 3.4 cm, volume 15.1 mL. Nodule characteristics: Composition: Solid/almost completely solid (2). Echogenicity: Hypoechoic (2). Shape: Not taller than wide (0). Margins: Ill-defined (0). Echogenic Foci: Macrocalcifications (1). Punctate echogenic foci (3). ACR TI-RADS total points: 8 ACR TI-RADS category: 5 3. Location: Right superior. Size: 0.7 x 0.5 x 0.7 cm, volume 0.1 mL. Nodule characteristics: Composition: Mixed cystic and solid (1). Echogenicity: Isoechoic (1). Shape: Not taller than wide (0). Margins: Smooth (0). Echogenic Foci: None (0). ACR TI-RADS total points: 2 ACR TI-RADS category: 2 4. Location: Left superior. Size: 0.8 x 0.4 x 0.5 cm, volume 0.09 mL. Nodule characteristics: Composition: Mixed cystic and solid (1). Echogenicity: Isoechoic (1). Shape: Not taller than wide (0). Margins: Smooth (0). Echogenic Foci: None (0). ACR TI-RADS total points: 2 ACR TI-RADS category: 2 5. Location: Left mid. Size: 0.8 x 0.5 x 0.6 cm, volume 0.1 mL. Nodule characteristics: Composition: Mixed cystic and solid (1). Echogenicity: Isoechoic (1). Shape: Not taller than wide (0). Margins: Smooth (0). Echogenic Foci: None (0). ACR TI-RADS total points: 2 ACR TI-RADS category: 2 NODES: No lymphadenopathy is seen in the tissue surrounding the thyroid gland. US/US thyroid IMPRESSION: A 4.1 cm TR 5 right inferior thyroid nodule meets criteria for tissue sampling. Remainder of thyroid nodules do not meet criteria for follow-up. ACR TI-RADS RECOMMENDATION REFERENCE: Ultrasound-guided fine-needle aspiration, followup ultrasound, no further follow up. * TR1 (0 point) and TR 2 (2 points): No FNA or follow up. * TR3 (3 points): FNA if more than or equal to 2.5 cm in maximum dimension, followup ultrasound in 1, 3 and 5 years if 1.5 to 2.4 cm in maximum dimension. * TR4 (4-6 points): FNA if more than or equal to 1.5 cm in maximum dimension, followup ultrasound in 1, 2, 3 and 5 years if 1 to 1.4 cm in maximum dimension. * TR5 (more than or equal to 7 points): FNA if more than or equal to 1 cm in maximum dimension, followup ultrasound every year for 5 years if 0.5 to 0.9 cm in maximum dimension. * TR3, TR4 or TR5 nodules that are below the size threshold for followup receive no follow up.
== END 2022-09-06 08:47 | disposition home or self-care (01) ==
LOC: HO.HMGCX 08:46
PROVIDERS: PCP Internal Medicine; Visit Provider Internal Medicine
DX: E04.1 Nontoxic single thyroid nodule (principal)
CPT/HCPCS: 76536

== ENCOUNTER → 2022-11-06 08:24 | Outpatient (BNVA) | payer MEDICAID, SELFPAY | PROVIDERS: PCP Internal Medicine; Visit Provider Internal Medicine | DX: E04.2 Nontoxic multinodular goiter (principal) | CPT/HCPCS: 36415; 84439; 84443; 99202 ==

== ENCOUNTER 2022-11-06 09:05 | Outpatient (REF) | payer MEDICAID, SELFPAY ==
[2022-11-06 12:18] LABS: Free T4 (Free Thyroxine) 1.04 ng/dL (0.71-1.85); Thyroid Stimulating Hormone 0.52 uIU/mL (0.32-4.0)
== END 2022-11-06 09:06 | disposition home or self-care (01) ==
LOC: HO.10HDL 09:05
PROVIDERS: Visit Provider Internal Medicine
DX: E04.2 Nontoxic multinodular goiter (principal)
CPT/HCPCS: 36415; 84439; 84443

== ENCOUNTER 2022-11-14 08:38 | Outpatient (REF) | payer MEDICAID, SELFPAY ==
--- NOTE | ~2022-11-14 | MR_ITS ---
EXAMINATION: MR ABDOMEN WITHOUT AND WITH CONTRAST CLINICAL INFORMATION: Liver disease unspecified COMPARISON: MR abdomen 05/09/2022 TECHNIQUE: MRI of the abdomen before and after the IV administration of 5.5 mL of Gadavist was obtained using routine sequences. FINDINGS: LUNG BASES: The visualized lung bases are unremarkable. KIDNEYS AND URETERS: Unremarkable. GALLBLADDER: Status post cholecystectomy. LIVER AND BILIARY TREE: Benign-appearing right hepatic lobe simple cyst. Loss of signal on opposed phase imaging compatible with hepatic steatosis. There is one focus of peripheral arterial phase hyperenhancement in the hepatic dome measuring 7 mm, not previously imaged due to limitations in the [id number] on prior exam however the remainder of predominantly peripheral foci of arterial phase hyper enhancement measuring up to 7 mm in the medial aspect of the right hepatic lobe, 100:49 are similar for slightly decreased in conspicuity with respect to prior, previously 9 mm, and findings favor transient hepatic intensity differences. Similar prominence of the common bile duct and central intrahepatic ducts which may be related to the postcholecystectomy state and patient age. PANCREAS: Unremarkable SPLEEN: Unremarkable ADRENAL GLANDS: Unremarkable GASTROINTESTINAL TRACT: Unremarkable. LYMPH NODES: No lymphadenopathy. VASCULAR: Unremarkable ABDOMINAL WALL: Unremarkable. OSSEOUS STRUCTURES: Grade 1 anterolisthesis of L5 on S1. MR/MR abdomen wo/w con IMPRESSION: There is one focus of peripheral arterial phase hyperenhancement in the hepatic dome measuring 7 mm, not previously imaged due to limitations in the [id number] on prior exam however the remainder of predominantly peripheral foci of arterial phase hyper enhancement measuring up to 7 mm in the medial aspect of the right hepatic lobe are similar or slightly decreased in conspicuity with respect to prior and findings favor transient hepatic intensity differences. Other differential considerations could include focal nodular hyperplasia, less likely hepatic adenoma. Hepatic steatosis. Grade 1 anterolisthesis of L5 on S1. Similar prominence of the common bile duct and central intrahepatic ducts which may be related to the post cholecystectomy state and patient age.
== END 2022-11-14 08:39 | disposition home or self-care (01) ==
LOC: HO.MRI 08:38
PROVIDERS: PCP Internal Medicine; Visit Provider Internal Medicine
DX: K76.9 Liver disease, unspecified (principal)
CPT/HCPCS: 74183; A9585

== ENCOUNTER 2023-02-17 08:46 | Outpatient (REF) | payer MEDICAID, SELFPAY ==
--- NOTE | ~2023-02-17 | CT_ITS ---
EXAMINATION: CT CHEST WITHOUT CONTRAST CLINICAL INFORMATION: Pulmonary nodule COMPARISON: Previous chest CT scans most recent June 2022 TECHNIQUE: Multidetector volumetric CT imaging of the chest was done. Axial MIP volume rendering provided. Sagittal and coronal reformatted images were obtained. This CT examination was performed using dose optimization techniques as appropriate, variously including the following: *Automated exposure control *Adjustment of mA and/or kV according to patient size (this includes techniques or standardized protocols for targeted exams where dose is matched to indication/reason for exam; i.e. extremities or head) *Use of iterative reconstruction technique DLP: 154 mGy-cm FINDINGS: LUNGS: 6 x 8 mm noncalcified left upper lobe nodule axial image 211 series 5 is stable. 4 mm calcified left upper lobe nodule axial image 167 series 5 is stable. 2 mm calcified left upper lobe nodule axial image 145 series 5 is stable. No new pulmonary nodule. MEDIASTINUM: Multiple bilateral thyroid nodules. The largest 1.3 x 2 cm partially calcified right thyroid nodule is stable. This was evaluated with thyroid ultrasound August 2022. Normal heart size. No pericardial effusion. No enlarged hilar or mediastinal lymph nodes. Normal caliber thoracic aorta. CORONARY ARTERY CALCIFICATION: None visualized on this study. PLEURA: There is no pleural effusion. No pleural mass or thickening. AXILLA: No lymphadenopathy. UPPER ABDOMEN: Stable1 cm low-attenuation lesion in the right lobe of the liver axial image 52 series 3 probably representing a cyst. Stable mild extrahepatic biliary duct dilatation. OSSEOUS STRUCTURES: Mild degenerative changes of the spine. CT/CT chest wo IV con IMPRESSION: Stable pulmonary nodules and back to earliest chest CT exam April 2022. Chest CT follow-up in one year recommended. Fleischner guidelines were followed.
== END 2023-02-17 08:47 | disposition home or self-care (01) ==
LOC: HO.CT 08:46
PROVIDERS: PCP Internal Medicine; Visit Provider Internal Medicine Pulmonary Disease
DX: R91.1 Solitary pulmonary nodule (principal)
CPT/HCPCS: 71250

== ENCOUNTER 2023-02-27 09:00 | Outpatient (REF) | payer MEDICAID, SELFPAY ==
--- NOTE | 2023-02-27 09:57 | PM.OP ---
Brief Operative Note Date of Service: 02/27/23 Pre-op diagnosis: Multinodular Thyroid Implants: This is doctor Maria M Torres. This is an ultrasound-guided fine-needle aspiration report. Indication: Multinodular Thyroid Porcedure: Procedure was explained to the patient. Alternatives, the risk and benefits were discussed. Written consent was obtained. A time-out was also obtained. After sterile preparation, 1 ml of 1% lidocaine solution was applied subcutaneously for anesthetic effect. Then Fine-needle aspiration of an isthmus 1.8 cm thyroid nodule was performed using direct ultrasound guidance to confirm accurate needle placement. Four aspirations were made using 27 gauge needles. An additional three aspirations were made using 25 guage needles. Samples were submitted for cytology. One pass was dedicated for [employer] Gene sequencing neon glass bender testing. Then Fine-needle aspiration of a left level III 1.0 cm cervical lymph node was performed using direct ultrasound guidance to confirm accurate needle placement. Four aspirations were made using 27 gauge needles. Samples were submitted for cytology. One pass was dedicated for thyroglobulin washout. The patient tolerated the procedure well. Aftercare instructions were provided. Of note, what was read as a 4.1 cm right lower pole nodule was found to be solely an area of heterogeneity, pseudonodule. No FNA was performed of this. Impression: Uncomplicated fine needle aspiration biopsy of an isthmus 1.8 cm thyroid nodule and a left level III cervical lymph node under ultrasound guidance. Surgeon: Maria M Torres, DO Was an Change Control Manager used for this Procedure?: No Estimated blood loss (mL): 0
[2023-02-27] MEDS: Lidocaine HCl 1 % MPF 5 ML VIAL SUBCUT (13:35)
[2023-03-06 23:13] LABS: FNA Site NG; Thyroglobulin, Fine Needle Asp 0.8 ng/mL
== END 2023-02-27 09:01 | disposition home or self-care (01) ==
LOC: HO.US 09:00
PROVIDERS: PCP Internal Medicine; Visit Provider Internal Medicine
DX: E04.2 Nontoxic multinodular goiter (principal)
CPT/HCPCS: 10005; 10006; 36415; 84432; 88172; 88173; 88177; 88305

== ENCOUNTER → 2023-03-07 08:27 | Outpatient (BNVA) | payer MEDICAID, SELFPAY | PROVIDERS: PCP Internal Medicine; Visit Provider Internal Medicine Pulmonary Disease | DX: R91.1 Solitary pulmonary nodule (principal) | CPT/HCPCS: 99212 ==

== ENCOUNTER → 2023-03-24 08:11 | Outpatient (BNVA) | payer MEDICAID, SELFPAY | PROVIDERS: PCP Internal Medicine; Visit Provider Internal Medicine ==

== ENCOUNTER 2023-04-22 09:04 | Outpatient (REF) | payer MEDICAID, SELFPAY ==
[2023-04-22 09:16] LABS: MANUAL DIFF FLAG NO
[2023-04-22 09:47] LABS: Basophils Absolute Auto 0.1 X10*3/uL (0.0-0.2); Eosinophils Absolute Auto 0.1 X10*3/uL (0.0-0.4); Eosinophils Percent Auto 2.5 % (0-4); Hematocrit 41.2 % (37.0-47.0); Hemoglobin 12.9 g/dl (12.0-16.0); Imm Gran Abs Auto 0.01 X10*3/uL (0.00-0.03); Imm Gran Pct Auto 0.2 % (0.0-0.4); Lymphocytes Absolute Auto 2.1 X10*3/uL (1.2-4.9); Lymphocytes Percent Auto 41.2 % (20-40); Mean Corpuscular HGB Conc 31.3 g/dl (31.0-35.0); Mean Corpuscular Hemoglobin 26.1 pg (27.0-33.0); Mean Corpuscular Volume 83.2 fL (80.0-98.0); Mean Platelet Volume 9.8 fL (9.4-12.3); Monocytes Absolute Auto 0.5 X10*3/uL (0.1-1.2); Neutrophils Absolute Auto 2.4 x10*3/uL (2.0-8.3); Neutrophils Percent Auto 46.1 % (45-73); Platelet Count 258 X10*3/uL (160-400); Red Blood Count 4.95 X10*6/uL (4.20-5.50); White Blood Count 5.2 X10*3/uL (4.8-10.8)
[2023-04-22 10:18] LABS: Appearance Urine Clear; Color Urine Yellow; Glucose Urine UA Negative (Negative); Leukocyte Esterase Urine Trace (Negative); Nitrite Urine Negative (Negative); UMIC TRIGGER UA YES; Urine Blood Negative (Negative); Urine Ketones Negative (Negative); Urine Protein Negative (Neg-Trace)
[2023-04-22 10:19] LABS: Estimated Average Glucose 126 mg/dL
[2023-04-22 10:21] LABS: Bacteria Urine None Seen (None Seen); Hyaline Casts Urine 0-2 /LPF (0-2); RBC Urine 0-2 /HPF (0-2); Squamous Epithelial Cell Urine 0-2 /HPF (0-2); WBC Urine 0-5 /HPF (0-5)
[2023-04-22 11:06] LABS: Alanine Aminotransferase 13 U/L (0-31); Albumin Level 4.1 g/dL (3.5-5.0); Alkaline Phosphatase 56 U/L (39-117); Anion Gap 11 (12-20); Aspartate Amino Transferase 16 U/L (5-31); Bilirubin Total 0.8 mg/dL (0.0-1.0); Blood Urea Nitrogen 16 mg/dL (9-16); Calcium 9.6 mg/dL (8.4-10.2); Carbon Dioxide 28 mmol/L (22-29); Chloride 108 mmol/L (96-108); Cholesterol 214 mg/dL; Estimated Glomerular Filt Rate > 60; Glucose Random 99 mg/dL (60-115); HDL Cholesterol 56 mg/dL; LDL Cholesterol Calculated 122 mg/dl; Sodium 143 mmol/L (135-145); Total Protein 7.5 g/dL (6.5-8.0); Triglycerides 182 mg/dL
[2023-04-22 11:11] LABS: Folate 11.2 ng/mL (> or = 4.0); Vitamin B12 586 pg/mL (200-900)
[2023-04-22 11:12] LABS: Free T4 (Free Thyroxine) 1.04 ng/dL (0.71-1.85); Thyroid Stimulating Hormone 0.91 uIU/mL (0.32-4.0); Vitamin D 25-OH Total 44.5 ng/mL (>30)
== END 2023-04-22 09:05 | disposition home or self-care (01) ==
LOC: HO.LAB 09:04
PROVIDERS: PCP Internal Medicine; Visit Provider Internal Medicine
DX: E78.00 Pure hypercholesterolemia, unspecified (principal); R73.02 Impaired glucose tolerance (oral)
CPT/HCPCS: 36415; 80053; 80061; 81001; 82306; 82607; 82746; 83036; 84439; 84443; 85025

== ENCOUNTER 2023-05-12 13:29 | Outpatient (AMB) | payer MEDICAID, SELFPAY ==
[2023-05-12 13:36] VITALS: BP 134/70; PULSE 75; O2SAT 98; BMI 25.5
--- NOTE | 2023-05-12 13:36 | A.OFFPC_ITS ---
Vital Signs 05/12/23 13:36 Height 4 ft 10 in Weight 122 lb BMI 25.5 BP 134/70 Blood Pressure Location Lt brachial Position Sitting Pulse 75 Pulse Source Pulse Oximeter Pulse Oximetry (%) 98 Oxygen Delivery Method Room Air Intake Visit Reasons: PE Allergies No Known Allergies [No Known Allergies*] Allergy (Verified 05/12/23 13:36) Medication List - Last Reconciled 05/12/23 by Brenda Guadalupe MD alendronate (Fosamax) 70 mg PO QWEEK amlodipine 5 mg PO DAILY 90 days blood pressure monitor (Blood Pressure Kit) As directed cholecalciferol (vitamin D3) 50 mcg PO DAILY ketoconazole 2% 1 appl topical 2XW lisinopril 40 mg PO DAILY metoprolol succinate ER 200 mg PO DAILY omeprazole 20 mg PO DAILY simvastatin 5 mg PO BEDTIME Tobacco use date assessed: 12/03/22 Fall risk assessment: No Falls in past year Last assessed Fall Risk: 05/12/23 Dental Screening Dental Screen Date: 05/12/23 Did you have a dental visit in the last 12 months?: Yes Did you have a dental problem in the last 6 months where you did not have access to dental care?: No Was dental information given to patient?: Patient has dentist HPI PE HPI Details 78-year-old female with multi nodule thyroid, hypertension GERD impa ired glucose tolerance hypercholesterolemia last seen in November 2022. Patient is here for physical exam blood work was requested. Colonoscopy up-to-date, mammogram due October bone density March 2022. With the multinodular thyroid seen by Endocrinology benign yearly ultrasound surveillance. Patient also being seen by Pulmonary for left pulmonary nodule and was advised another CT in 1 year . fall 1 days PFSH Medical History Abnormal finding on CT scan Benign essential hypertension Breast cancer screening by mammogram Chest pain GERD (gastroesophageal reflux disease) GERD (gastroesophageal reflux disease) Hx of osteoporosis Hx of solitary pulmonary nodule Hypercholesterolemia Local reaction to immunization Multinodular thyroid Osteoporosis Overweight (BMI 25.0-29.9) Post-nasal drip Precordial chest pain Pure hypercholesterolemia RLQ abdominal pain SOB (shortness of breath) on exertion Ulnar neuropathy Vitamin D deficiency Surgical History H/O colonoscopy History of appendectomy History of cataract surgery History of cholecystectomy Family History Father Hypertension Mother No problems noted. Brother Enlarged heart Social History (Updated 05/12/23 @ 14:07 by Brenda Guadalupe MD) Household Members: Family, Children and Friend(s) Housing: House Alcohol intake: current Alcohol intake frequency: does not drink Patient Tobacco Use Status: Never used Tobacco Years Smoked: childhood for months e-Cigarette/Vaping Use: Never Used Second Hand Smoke Exposure: No service: No Current occupational status: retired Cognitive needs: No Hearing needs: No Vision needs: No Questionnaire PHQ-9 Over the last 2 weeks, how often have you been bothered by any of the following problems? 1. Little interest or pleasure in doing things: not at all 2. Feeling down, depressed, or hopeless: not at all 3. Trouble falling or staying asleep, or sleeping too much: not at all 4. Feeling tired or having little energy: not at all 5. Poor appetite or overeating: not at all 6. Feeling bad about yourself - or that you are a failure or have let yourself or your family down: not at all 7. Trouble concentrating on things, such as reading the newspaper or watching television: not at all 8. Moving or speaking so slowly that other people could have noticed. Or the opposite - being so fidgety or restless that you have been moving around a lot more than usual: not at all 9. Thoughts that you would be better off or of hurting yourself in some way: not at all Total score: 0 Depression Screening Interpretation: Negative Source: Developed by Drs. Francisco Aguirre, Loretta Deleon, Sedrick Roman and colleagues, with an educational calderon from [employer]. Thrive Questionnaire Date Thrive assessed: 12/03/22 AUDIT C Alcohol Use Questionnaire (AUDIT-C) 1. How often do you have a drink containing alcohol?: Never 2. How many drinks containing alcohol do you have on a typical day when you are drinking?: 1 or 2 3. How often do you have six or more drinks on one occasion?: Never Total Score: 0 Score Reviewed/Action Taken: Yes ALPA-7 AMB Questionnaire ALPA-7 Date ALPA - 7 assessed: 12/03/22 Source: Developed by Drs. Francisco Aguirre, Loretta Deleon, Sedrick Roman and colleagues, with an educational calderon from [employer]. Review of Systems Const Denies poor appetite and Denies weakness Eyes Denies no additional complaints ENT Reports Normal hearing present, Denies dizziness, Denies nasal congestion, Denies tinnitus and Denies sore throat Card Denies chest pain, Denies syncope, Denies rapid heart rate and Denies dyspnea Resp Denies cough and Denies dyspnea GI Denies change in stool character, Reports constipation, Denies diarrhea, Denies nausea and Denies vomiting Denies urinary frequency, Denies difficulty voiding and Denies dysuria Neuro Reports Normal hearing present, Denies confusion, Denies dizziness, Denies syncope and Denies weakness Psych Denies confusion Physical exam (Primary Care) Vital Signs: Last Vital Signs Pulse 75 05/12/23 13:36 BP 134/70 05/12/23 13:36 Pulse Ox 98 05/12/23 13:36 Oxygen Delivery Method Room Air 05/12/23 13:36 Care Plan Goal for BP management: Rectal exam declined BMI result Body Mass Index 25.5 Tobacco/Smoking Status: Tobacco use Status Tobacco use date assessed 12/03/22 05/12/23 13:41 Patient Tobacco Use Status Never used Tobacco 05/12/23 13:41 e-Cigarette/Vaping Use Never Used 05/12/23 13:41 PHQ-9: PHQ-9 Score PHQ-9: Total score 0 05/12/23 13:41 Depression Screening Interpretation: Negative Thrive Assessment: Date of Thrive Assessment Date Thrive assessed 12/03/22 05/12/23 13:41 Const General: No confusion Orientation/consciousness: No confusion HENMT Head: Yes normocephalic Ears: external ears normal and TM's normal bilaterally Face and sinus: Yes normal facial exam Mouth: moist mucous membranes Throat: Yes tonsils normal Eyes Conjunctivae: conjunctivae normal Pupils: Equal, round and reactive pupils present and Pupil accommodation reflex normal Direct Ophthalmoscopy: normal light reflex Neck Neck: No lymphadenopathy Thyroid: Thyroid normal Chest Chest palpation & inspection: normal inspection of the chest Resp Effort & Inspection: normal respiratory effort and no audible wheezes Auscultation: clear to auscultation bilaterally, no crackles, no wheezes and lung sounds not diminished Cardio Rate: regular rate Rhythm: regular rhythm Peripheral pulses: radial pulses present and dorsalis pedis present GI Palpation (GI): no masses Auscultation: normal bowel sounds and normoactive bowel sounds Rectal Exam - Female: deferred Skin General skin exam: no rashes or lesions noted Rashes: no rashes Neuro General: No confusion Cranial nerves: Yes Equal, round and reactive pupils present and Yes Normal hearing present Cognition (Neuro): normal cognition Gait exam (Neuro): Normal gait present Motor exam (neuro): 5/5 motor strength present throughout Deep tendon reflexes (DTR's): Right brachioradialis reflex intensity grade: 2+, Left brachioradialis reflex intensity grade: 2+, Right patellar reflex intensity grade: 2+ and Left patellar reflex intensity grade: 2+ Extrem General: No edema Assessment and Plan Assessment & Plan (1) Annual physical exam: Code(s): Z00.00 - Encounter for general adult medical examination without abnormal findings (2) Hypercholesterolemia: Code(s): E78.00 - Pure hypercholesterolemia, unspecified Plan: Avoid fried foods, chicken skin, eggs, butter margarine, pastries and meat. Be it pork or beef they have a lot of cholesterol LDL goal of less than 130 and triglyceride of less than 150 patient is taking simvastatin 5 mg once a day (3) Impaired glucose tolerance: Code(s): R73.02 - Impaired glucose tolerance (oral) Plan: Decrease the amount of carbohydrate intake, pasta, bread, rice and potatoes are all sugar and that is aside from all the sweet stuff, remember that fruits are good but they are Sweet also. (4) GERD (gastroesophageal reflux disease): Code(s): K21.9 - Gastro-esophageal reflux disease without esophagitis Qualifiers: Esophagitis presence: without esophagitis Qualified Code(s): K21.9 - Gastro-esophageal reflux disease without esophagitis Plan: Avoid the foods that causes that usually spicy foods, tomato products, juices, coffee, soda and foods that your sensitive to. After eating do not lie down, allow 3-4 hours before in lie down. And keep the head of bed above 30 degrees to avoid the acid from going up. (5) Benign essential hypertension: Code(s): I10 - Essential (primary) hypertension Plan: Continue with blood pressure medication. Decrease salt intake and exercise patient is taking amlodipine 5 mg once a day lisinopril 40 mg 1 day and metoprolol 200 mg once a day (6) Age-related osteoporosis without current pathological fracture: Code(s): M81.0 - Age-related osteoporosis without current pathological fracture Plan: Continue with alendronate once a week (7) Pulmonary nodule, left: Code(s): R91.1 - Solitary pulmonary nodule Plan: Patient is being followed up by Pulmonary repeat CT scan in 1 year (8) Thyroid nodule: Comment: 4.1 right inferior August 2022 Code(s): E04.1 - Nontoxic single thyroid nodule Plan: Biopsy negative patient is being followed up by Endocrinology ultrasound next year Medications: New peg 400-propylene glycol (PF) 0.4-0.3 % (Systane Ultra (PF)) 1 drp ophthalmic- Left BID-QID PRN 20 mL 0RF dry eye(s) Coding Level of Care Code Est Pt Prev Care >65y(96777) Diagnoses Annual physical exam Z00.00 Hypercholesterolemia E78.00 Impaired glucose tolerance R73.02 GERD (gastroesophageal reflux disease) K21.9 Esophagitis presence: without esophagitis Benign essential hypertension I10 Age-related osteoporosis without current pathological fracture M81.0 Pulmonary nodule, left R91.1 Thyroid nodule E04.1 Additional Codes PHQ-9 - 74178 - PHQ-9 Billing: Y ([id number])
== END 2023-05-12 14:43 | disposition home or self-care (01) ==
PROVIDERS: PCP Internal Medicine; Visit Provider Internal Medicine
DX: Z00.00 Encounter for general adult medical examination without abnormal findings (principal); I10 Essential (primary) hypertension; K21.9 Gastro-esophageal reflux disease without esophagitis; E04.1 Nontoxic single thyroid nodule; E78.00 Pure hypercholesterolemia, unspecified; R73.02 Impaired glucose tolerance (oral); M81.0 Age-related osteoporosis without current pathological fracture; R91.1 Solitary pulmonary nodule
CPT/HCPCS: 99397

== ENCOUNTER 2023-11-04 08:42 | Outpatient (AMB) | payer MEDICAID, SELFPAY ==
[2023-11-04 09:02] VITALS: BP 134/68; PULSE 65; O2SAT 99; BMI 27.0
--- NOTE | 2023-11-04 09:02 | MHC.PC.OV ---
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 Last seen in April 2023 patient's colonoscopy is due this year mammogram is due and bone density is up-to-date. [facility] Medical History (Updated 11/04/23 @ 10:07 by Brenda Guadalupe MD) Multinodular thyroid Overweight (BMI 25.0-29.9) Abnormal finding on CT scan SOB (shortness of breath) on exertion Precordial chest pain Chest pain Pure hypercholesterolemia Benign essential hypertension Local reaction to immunization Post-nasal drip GERD (gastroesophageal reflux disease) Breast cancer screening by mammogram RLQ abdominal pain Osteoporosis Ulnar neuropathy Hypercholesterolemia Vitamin D deficiency Hx of osteoporosis GERD (gastroesophageal reflux disease) Hx of solitary pulmonary nodule Surgical History History of cataract surgery H/O colonoscopy History of cholecystectomy History of appendectomy Family History Father Hypertension Mother No problems noted. Brother Enlarged heart Social History (Updated 05/12/23 @ 14:07 by Brenda Guadalupe MD) Household Members: Family, Children and Friend(s) Housing: House Alcohol intake: current Alcohol intake frequency: does not drink Patient Tobacco Use Status: Never used Tobacco Years Smoked: childhood for months e-Cigarette/Vaping Use: Never Used Second Hand Smoke Exposure: No service: No Current occupational status: retired Cognitive needs: No Hearing needs: No Vision needs: No Questionnaire Thrive Questionnaire Date Thrive assessed: 12/03/22 AUDIT C Alcohol Use Questionnaire (AUDIT-C) 1. How often do you have a drink containing alcohol?: Never 2. How many drinks containing alcohol do you have on a typical day when you are drinking?: 1 or 2 3. How often do you have six or more drinks on one occasion?: Never Total Score: 0 Score Reviewed/Action Taken: Yes ALPA-7 AMB Questionnaire ALPA-7 Date ALPA - 7 assessed: 11/04/23 Source: Developed by Drs. Francisco Aguirre, Loretta Deleon, Sedrick Roman and colleagues, with an educational calderon from [employer]. Physical exam (Primary Care) Vital Signs: Last Vital Signs Pulse 65 11/04/23 09:02 BP 134/68 11/04/23 09:02 Pulse Ox 99 11/04/23 09:02 Oxygen Delivery Method Room Air 11/04/23 09:02 BMI result Body Mass Index 27.0 Tobacco/Smoking Status: Tobacco use Status Tobacco use date assessed 11/04/23 11/04/23 09:35 Patient Tobacco Use Status Never used Tobacco 11/04/23 09:04 e-Cigarette/Vaping Use Never Used 11/04/23 09:04 Thrive Assessment: Date of Thrive Assessment Date Thrive assessed 12/03/22 11/04/23 09:04 Const General: alert; No acute distress Eyes Conjunctivae: conjunctivae normal Resp Auscultation: clear to auscultation bilaterally Cardio Rate: regular rate Rhythm: regular rhythm GI Inspection: Yes normal to inspection Extrem General: Yes normal to inspection and No edema Assessment and Plan Assessment & Plan (1) Hypercholesterolemia: Code(s): E78.00 - Pure hypercholesterolemia, unspecified Plan: Avoid fried foods, chicken skin, eggs, butter margarine, pastries and meat. Be it pork or beef they have a lot of cholesterol LDL goal of less than 130 and triglyceride of less than 150. Patient on simvastatin 5 mg once a day (2) Impaired glucose tolerance: Code(s): R73.02 - Impaired glucose tolerance (oral) Plan: Decrease the amount of carbohydrate intake, pasta, bread, rice and potatoes are all sugar and that is aside from all the sweet stuff, remember that fruits are good but they are Sweet also. (3) Tubular adenoma of colon: Code(s): D12.6 - Benign neoplasm of colon, unspecified Plan: Patient is reminded about colonoscopy for this year (4) GERD (gastroesophageal reflux disease): Code(s): K21.9 - Gastro-esophageal reflux disease without esophagitis Qualifiers: Esophagitis presence: without esophagitis Qualified Code(s): K21.9 - Gastro-esophageal reflux disease without esophagitis Plan: Avoid the foods that causes that usually spicy foods, tomato products, juices, coffee, soda and foods that your sensitive to. After eating do not lie down, allow 3-4 hours before in lie down. And keep the head of bed above 30 degrees to avoid the acid from going up. On omeprazole (5) Benign essential hypertension: Code(s): I10 - Essential (primary) hypertension Plan: Continue with blood pressure medication. Decrease salt intake and exercise presently on metoprolol 200 mg once a day lisinopril 40 mg once a day and amlodipine 5 mg once a day (6) Overweight (BMI 25.0-29.9): Code(s): E66.3 - Overweight Plan: Diet and exercise (7) Thyroid nodule: Comment: 4.1 right inferior August 2022, benign biopsy February 2023 Code(s): E04.1 - Nontoxic single thyroid nodule Plan: Benign biopsy February 2023- will order for US thyroid February (8) Pulmonary nodule, left: Comment: February 2023Stable pulmonary nodules and back to earliest chest CT exam April [address]22. Chest CT follow-up in one year recommend Code(s): R91.1 - Solitary pulmonary nodule Plan: CT scan done February 2023 Orders: Orders Comprehensive Met. Panel Today R73.02 - Impaired glucose tolerance (oral) Complete Blood Count Auto Diff Today R73.02 - Impaired glucose tolerance (oral) Thyroid Stimulating Hormone Today R73.02 - Impaired glucose tolerance (oral) Vitamin B12 and Folate Today R73.02 - Impaired glucose tolerance (oral) US thyroid 4 Months E04.1 - Nontoxic single thyroid nodule Hemoglobin A1c Today R73.02 - Impaired glucose tolerance (oral) Lipid Panel Today E78.00 - Pure hypercholesterolemia, unspecified, R73.02 - Impaired glucose tolerance (oral) Free T4 (Free Thyroxine) Today R73.02 - Impaired glucose tolerance (oral) UA CC w/rflx Micro + Cult Today R30.0 - Dysuria, R73.02 - Impaired glucose tolerance (oral) Medications: Refilled amlodipine 5 mg PO DAILY 90 days 90 tabs 3RF I10 - Essential (primary) hypertension lisinopril 40 mg PO DAILY 90 tabs 3RF I10 - Essential (primary) hypertension metoprolol succinate ER 200 mg PO DAILY 90 tabs 3RF I10 - Essential (primary) hypertension Coding Level of Care Code Est Pt Level 4 (12088) Diagnoses Hypercholesterolemia E78.00 Impaired glucose tolerance R73.02 Tubular adenoma of colon D12.6 Gastroesophageal reflux disease without esophagitis K21.9 Esophagitis presence: without esophagitis Benign essential hypertension I10 Overweight (BMI 25.0-29.9) E66.3 Thyroid nodule E04.1 Pulmonary nodule, left R91.1
== END 2023-11-04 10:27 | disposition home or self-care (01) ==
PROVIDERS: PCP Internal Medicine; Visit Provider Internal Medicine
DX: E78.00 Pure hypercholesterolemia, unspecified (principal); R73.02 Impaired glucose tolerance (oral); D12.6 Benign neoplasm of colon, unspecified; K21.9 Gastro-esophageal reflux disease without esophagitis; I10 Essential (primary) hypertension; E66.3 Overweight; E04.1 Nontoxic single thyroid nodule; R91.1 Solitary pulmonary nodule
CPT/HCPCS: 99214

== ENCOUNTER 2024-02-16 10:28 | Outpatient (REF) | payer MEDICARE, MEDICAID, SELFPAY ==
[2024-02-16 10:55] LABS: MANUAL DIFF FLAG NO
[2024-02-16 12:17] LABS: Basophils Percent Auto 0.9 % (0-2); Eosinophils Absolute Auto 0.1 X10*3/uL (0.0-0.4); Eosinophils Percent Auto 2.3 % (0-4); Hematocrit 40.7 % (37.0-47.0); Hemoglobin 13.1 g/dl (12.0-16.0); Lymphocytes Absolute Auto 2.2 X10*3/uL (1.2-4.9); Lymphocytes Percent Auto 45.7 % (20-40); Mean Corpuscular HGB Conc 32.2 g/dl (31.0-35.0); Mean Corpuscular Hemoglobin 26.4 pg (27.0-33.0); Mean Corpuscular Volume 82.1 fL (80.0-98.0); Mean Platelet Volume 9.6 fL (9.4-12.3); Monocytes Absolute Auto 0.5 X10*3/uL (0.1-1.2); Neutrophils Absolute Auto 1.9 x10*3/uL (2.0-8.3); Neutrophils Percent Auto 41.1 % (45-73); Platelet Count 267 X10*3/uL (160-400); Red Blood Count 4.96 X10*6/uL (4.20-5.50); Red Cell Distribution Width 13.2 % (11.0-16.0); White Blood Count 4.7 X10*3/uL (4.8-10.8)
[2024-02-16 12:20] LABS: Appearance Urine Clear; Color Urine Yellow; Glucose Urine UA Negative (Negative); Leukocyte Esterase Urine Small (1+) (Negative); Nitrite Urine Negative (Negative); UMIC TRIGGER UACC YES; Urine Blood Negative (Negative); Urine Ketones Negative (Negative); Urine Protein Negative (Neg-Trace)
[2024-02-16 12:25] LABS: Estimated Average Glucose 128 mg/dL; Hemoglobin A1c % 6.1 % (<6.0)
[2024-02-16 12:29] LABS: Bacteria Urine None Seen (None Seen); Hyaline Casts Urine 0-2 /LPF (0-2); RBC Urine 0-2 /HPF (0-2); UACC Culture Trigger YES; WBC Urine 0-5 /HPF (0-5)
[2024-02-16 12:57] LABS: Alanine Aminotransferase 15 U/L (0-31); Albumin Level 4.2 g/dL (3.5-5.0); Alkaline Phosphatase 60 U/L (39-117); Anion Gap 12 (12-20); Aspartate Amino Transferase 17 U/L (5-31); Bilirubin Total 0.7 mg/dL (0.0-1.0); Blood Urea Nitrogen 17 mg/dL (9-16); Calcium 9.6 mg/dL (8.4-10.2); Carbon Dioxide 26 mmol/L (22-29); Chloride 107 mmol/L (96-108); Cholesterol 202 mg/dL (<200); Estimated Glomerular Filt Rate > 60; Glucose Random 105 mg/dL (60-115); HDL Cholesterol 57 mg/dL (>40); LDL Cholesterol Calculated 122 mg/dL (<100); Potassium 3.8 mmol/L (3.3-5.1); Sodium 141 mmol/L (135-145); Total Protein 7.4 g/dL (6.5-8.0); Triglycerides 116 mg/dL (<150)
[2024-02-16 13:13] LABS: Free T4 (Free Thyroxine) 1.09 ng/dL (0.71-1.85); Thyroid Stimulating Hormone 0.41 uIU/mL (0.32-4.0)
[2024-02-16 13:17] LABS: Folate 13.2 ng/mL (> or = 4.0); Vitamin B12 500 pg/mL (200-900)
== END 2024-02-16 10:29 | disposition home or self-care (01) ==
LOC: HO.LAB 10:28
PROVIDERS: PCP Internal Medicine; Visit Provider Internal Medicine
DX: R73.02 Impaired glucose tolerance (oral) (principal); E78.00 Pure hypercholesterolemia, unspecified
CPT/HCPCS: 36415; 80053; 80061; 81001; 82607; 82746; 83036; 84439; 84443; 85025; 87086

== ENCOUNTER 2024-02-24 09:18 | Outpatient (AMB) | payer MEDICARE, MEDICAID, SELFPAY ==
[2024-02-24 09:19] VITALS: BP 152/80; PULSE 70; O2SAT 98; BMI 26.3
--- NOTE | 2024-02-24 09:19 | MHC.PC.OV ---
Vital Signs 02/24/24 09:19 Height 4 ft 10 in Weight 126 lb BMI 26.3 BP 152/80 H Blood Pressure Location Lt brachial Position Sitting Pulse 70 Pulse Source Pulse Oximeter Pulse Oximetry (%) 98 Oxygen Delivery Method Room Air Intake Visit Reasons: IGT, hypercholesterol, HTN Allergies No Known Allergies [No Known Allergies*] Allergy (Verified 02/24/24 09:19) Tobacco use date assessed: 11/04/23 Fall risk assessment: No Falls in past year Last assessed Fall Risk: 02/24/24 Dental Screening Dental Screen Date: 02/24/24 Did you have a dental visit in the last 12 months?: No Did you have a dental problem in the last 6 months where you did not have access to dental care?: No Was dental information given to patient?: No HPI IGT, hypercholesterol, HTN HPI Details 79-year-old overweight female with hypercholesterolemia impaired glucose tolerance GERD hypertension history of thyroid nodule and pulmonary nodule and tubular adenoma coming in for follow-up. Last seen in 11/04/2023. Patient's last colon test was 12/02/2020 and due for this year patient's mammogram is due also and bone density is due next month. [facility] [place] Medical History (Updated 02/24/24 @ 09:59 by Brneda Guadalupe MD) Multinodular thyroid Overweight (BMI 25.0-29.9) Abnormal finding on CT scan SOB (shortness of breath) on exertion Precordial chest pain Chest pain Pure hypercholesterolemia Benign essential hypertension Local reaction to immunization Post-nasal drip GERD (gastroesophageal reflux disease) Breast cancer screening by mammogram RLQ abdominal pain Osteoporosis Ulnar neuropathy Hypercholesterolemia Vitamin D deficiency Hx of osteoporosis GERD (gastroesophageal reflux disease) Hx of solitary pulmonary nodule Surgical History History of cataract surgery H/O colonoscopy History of cholecystectomy History of appendectomy Family History Father Hypertension Mother No problems noted. Brother Enlarged heart Social History (Updated 05/12/23 @ 14:07 by Brenda Guadalupe MD) Household Members: Family, Children and Friend(s) Housing: House Alcohol intake: current Alcohol intake frequency: does not drink Patient Tobacco Use Status: Never used Tobacco Years Smoked: childhood for months e-Cigarette/Vaping Use: Never Used Second Hand Smoke Exposure: No service: No Current occupational status: retired Cognitive needs: No Hearing needs: No Vision needs: No Questionnaire PHQ-9 Over the last 2 weeks, how often have you been bothered by any of the following problems? 1. Little interest or pleasure in doing things: not at all 2. Feeling down, depressed, or hopeless: not at all 3. Trouble falling or staying asleep, or sleeping too much: not at all 4. Feeling tired or having little energy: not at all 5. Poor appetite or overeating: not at all 6. Feeling bad about yourself - or that you are a failure or have let yourself or your family down: not at all 7. Trouble concentrating on things, such as reading the newspaper or watching television: not at all 8. Moving or speaking so slowly that other people could have noticed. Or the opposite - being so fidgety or restless that you have been moving around a lot more than usual: not at all 9. Thoughts that you would be better off or of hurting yourself in some way: not at all Total score: 0 Depression Screening Interpretation: Negative Depression Screening Done: Yes Source: Developed by Drs. Francisco Aguirre, Loretta Deleon, Sedrick Roman and colleagues, with an educational calderon from [employer]. Thrive Questionnaire Date Thrive assessed: 02/24/24 I am a: Patient What is your living situation today?: I have a steady place to live Within the past 12 months, did the food you bought not last and you didn't have the money to get more?: Never true Within the past 12 months, did you worry whether your food would run out before you got money to buy more?: Never true Do you have trouble paying for medicines?: No Do you have trouble getting transportation to medical appointments?: No Do you have trouble paying your heating and electricity bill?: No Do you have trouble taking care of your child, family member or friend?: No Do you have trouble with day-to-day activities such as bathing, preparing meals, shopping, managing finances, etc.?: No Are you currently unemployed and looking for a job?: No Are you interested in more education?: No Currently or been in a relationship where the following occur: no concerns reported THRIVE Score: 0 AUDIT C Alcohol Use Questionnaire (AUDIT-C) 1. How often do you have a drink containing alcohol?: Never 2. How many drinks containing alcohol do you have on a typical day when you are drinking?: 1 or 2 3. How often do you have six or more drinks on one occasion?: Never Total Score: 0 Score Reviewed/Action Taken: Yes ALPA-7 AMB Questionnaire ALPA-7 Date ALPA - 7 assessed: 02/24/24 Feeling nervous, anxious, or on edge: 0 = Not at all Not being able to stop or control worryin = Not at all Worrying too much about different things: 0 = Not at all Trouble relaxin = Not at all Being so restless that it is hard to sit still: 0 = Not at all Becoming easily annoyed or irritable: 0 = Not at all Feeling afraid as if something awful might happen: 0 = Not at all Total ALPA-7 score (0-4 normal; 5-9 mild; 10-14 moderate; 15-21 severe): 0 Source: Developed by Drs. Francisco Aguirre, Loretta Deleon, Sedrick Roman and colleagues, with an educational calderon from [employer]. Physical exam (Primary Care) Vital Signs: Last Vital Signs Pulse 70 02/24/24 09:19 BP 152/80 H 02/24/24 09:19 Pulse Ox 98 02/24/24 09:19 Oxygen Delivery Method Room Air 02/24/24 09:19 BMI result Body Mass Index 26.3 Tobacco/Smoking Status: Tobacco use Status Tobacco use date assessed 11/04/23 02/24/24 09:25 Patient Tobacco Use Status Never used Tobacco 02/24/24 09:25 e-Cigarette/Vaping Use Never Used 02/24/24 09:25 PHQ-9: PHQ-9 Score PHQ-9: Total score 0 02/24/24 09:25 Depression Screening Interpretation: Negative Thrive Assessment: Date of Thrive Assessment Date Thrive assessed 02/24/24 02/24/24 09:25 Currently or been in a relationship where the following occur: no concerns reported Const General: alert; No acute distress Eyes Conjunctivae: conjunctivae normal Resp Auscultation: clear to auscultation bilaterally Cardio Rate: regular rate Rhythm: regular rhythm GI Inspection: Yes normal to inspection Extrem General: Yes normal to inspection and No edema Assessment and Plan Assessment & Plan (1) Overweight (BMI 25.0-29.9): Code(s): E66.3 - Overweight Plan: Diet and exercise (2) Breast cancer screening by mammogram: Code(s): Z12.31 - Encounter for screening mammogram for malignant neoplasm of breast Plan: Patient is reminded about the mammogram but patient declined (3) Age-related osteoporosis without current pathological fracture: Comment: 03/2022 last bone density Code(s): M81.0 - Age-related osteoporosis without current pathological fracture Plan: 03/2022 last bone density (4) Benign essential hypertension: Code(s): I10 - Essential (primary) hypertension Plan: Continue with blood pressure medication. Decrease salt intake and exercise on amlodipine 5 mg once a day lisinopril 40 mg once a day metoprolol is 200 mg once a day noted elevated blood pressure presently will continue to monitor. (5) GERD (gastroesophageal reflux disease): Code(s): K21.9 - Gastro-esophageal reflux disease without esophagitis Qualifiers: Esophagitis presence: without esophagitis Qualified Code(s): K21.9 - Gastro-esophageal reflux disease without esophagitis Plan: Avoid the foods that causes that usually spicy foods, tomato products, juices, coffee, soda and foods that your sensitive to. After eating do not lie down, allow 3-4 hours before in lie down. And keep the head of bed above 30 degrees to avoid the acid from going up. (6) Tubular adenoma of colon: Code(s): D12.6 - Benign neoplasm of colon, unspecified Plan: Patient is reminded about colonoscopy needed for this year (7) Impaired glucose tolerance: Code(s): R73.02 - Impaired glucose tolerance (oral) Plan: Decrease the amount of carbohydrate intake, pasta, bread, rice and potatoes are all sugar and that is aside from all the sweet stuff, remember that fruits are good but they are Sweet also. Noted A1c to be increasing to 6.1 (8) Hypercholesterolemia: Code(s): E78.00 - Pure hypercholesterolemia, unspecified Plan: Avoid fried foods, chicken skin, eggs, butter margarine, pastries and meat. Be it pork or beef they have a lot of cholesterol on simvastatin 5 mg once a day LDL goal of less than 130 and triglyceride of less than 150 (9) Mammogram declined: Code(s): Z53.20 - Procedure and treatment not carried out because of patient's decision for unspecified reasons Plan: Patient declined mammogram (10) Numbness of left hand: Code(s): R20.0 - Anesthesia of skin Plan: decline testing for now but is aware advised to wear wrist splint Orders: Orders XR DEXA axial skeleton Today M81.0 - Age-related osteoporosis without current pathological fracture Comprehensive Met. Panel 6 Months R73.02 - Impaired glucose tolerance (oral) Complete Blood Count Auto Diff 6 Months E78.00 - Pure hypercholesterolemia, unspecified Hemoglobin A1c 6 Months R73.02 - Impaired glucose tolerance (oral) Lipid Panel 6 Months E78.00 - Pure hypercholesterolemia, unspecified Referrals Gastroenterology Referral D12.6 - Benign neoplasm of colon, unspecified Medications: Refilled alendronate (Fosamax) 70 mg PO QWEEK 12 tabs 3RF M81.0 - Age-related osteoporosis without current pathological fracture cholecalciferol (vitamin D3) 50 mcg PO DAILY 90 caps 3RF I10 - Essential (primary) hypertension amlodipine 5 mg PO DAILY 90 days 90 tabs 3RF I10 - Essential (primary) hypertension lisinopril 40 mg PO DAILY 90 tabs 3RF I10 - Essential (primary) hypertension metoprolol succinate ER 200 mg PO DAILY 90 tabs 3RF I10 - Essential (primary) hypertension omeprazole 20 mg PO DAILY 90 caps 2RF K21.9 - Gastro-esophageal reflux disease without esophagitis simvastatin 5 mg PO BEDTIME 90 tabs 3RF E78.00 - Pure hypercholesterolemia, unspecified Coding Level of Care Code Est Pt Level 4 (28965) Complex EM visit Add On G2211 Diagnoses Overweight (BMI 25.0-29.9) E66.3 Breast cancer screening by mammogram Z12.31 Age-related osteoporosis without current pathological fracture M81.0 Benign essential hypertension I10 Gastroesophageal reflux disease without esophagitis K21.9 Esophagitis presence: without esophagitis Tubular adenoma of colon D12.6 Impaired glucose tolerance R73.02 Hypercholesterolemia E78.00 Mammogram declined Z53.20 Numbness of left hand R20.0 Additional Codes PHQ-9 - 23308 - PHQ-9 Billing: ([id number])
== END 2024-02-24 10:05 | disposition home or self-care (01) ==
PROVIDERS: PCP Internal Medicine; Visit Provider Internal Medicine
DX: I10 Essential (primary) hypertension (principal); E66.3 Overweight; Z12.31 Encounter for screening mammogram for malignant neoplasm of breast; M81.0 Age-related osteoporosis without current pathological fracture; K21.9 Gastro-esophageal reflux disease without esophagitis; D12.6 Benign neoplasm of colon, unspecified; R73.02 Impaired glucose tolerance (oral); E78.00 Pure hypercholesterolemia, unspecified; Z53.20 Procedure and treatment not carried out because of patient's decision for unspecified reasons; R20.0 Anesthesia of skin
CPT/HCPCS: 99214; G2211

== ENCOUNTER 2024-03-29 08:24 | Outpatient (REF) | payer MEDICARE, MEDICAID, SELFPAY ==
--- NOTE | ~2024-03-29 | CT_ITS ---
EXAMINATION: CT CHEST WITHOUT CONTRAST CLINICAL INFORMATION: Solitary pulmonary nodule follow-up. COMPARISON: 02/17/2023. TECHNIQUE: Multidetector volumetric CT imaging of the chest was done. Axial MIP volume rendering provided. Sagittal and coronal reformatted images were obtained. This CT examination was performed using dose optimization techniques as appropriate, variously including the following: *Automated exposure control *Adjustment of mA and/or kV according to patient size (this includes techniques or standardized protocols for targeted exams where dose is matched to indication/reason for exam; i.e. extremities or head) *Use of iterative reconstruction technique DLP: 113 mGy-cm FINDINGS: PULMONARY NODULES: -There are a few scattered calcified tiny granulomata in both lungs. These are benign. -Average diameter 7 mm nodule in the left upper lobe, lingular segment, is stable (series 7, image 303). -Immediately abutting 3 mm nodule left upper lobe, lingula (series 7, image 295). -Completely calcified 5 mm left upper lobe nodule is stable (series 7, image 255). -No new or enlarging pulmonary nodules. LUNGS: -There are no consolidations or groundglass opacities. -Minor dependent atelectasis present in the lower lobe distributions. -No pleural masses or pleural effusion. -Bronchi including small airways appear normal. Central airways and trachea appear normal. MEDIASTINUM: -Multinodular thyroid, similar. -Aorta is normal in caliber and course with mild to moderate atheromatous calcification. No aneurysm. -Pulmonary arteries are normal in size. -Heart size is mildly enlarged. Left atrial enlargement. No pericardial effusion. - Esophagus normal in caliber and course. -No pathologic mediastinal or hilar lymphadenopathy detected. -Probable small type I hiatus hernia. CORONARY ARTERY CALCIFICATION: Minimal RCA. AXILLA/CHEST WALL: No masses or lymphadenopathy. UPPER ABDOMEN: -Normal within the limitations of noncontrast technique. OSSEOUS STRUCTURES: No suspicious lytic or blastic bone lesions. CT/CT chest wo IV con IMPRESSION: 1. Stable pulmonary nodules, largest left upper lobe measuring 7 mm average diameter, without change. 2. Benign calcified granulomata bilaterally. 3. No new or enlarging pulmonary nodules. 4. No active lung disease. 5. Known multinodular thyroid gland. 6. Mild cardiac enlargement with left atrial enlargement. 7. Additional ancillary findings as discussed in the body of the report. Recommend one-year follow-up exam in a high-risk patient as per Fleischner criteria.
== END 2024-03-29 08:25 | disposition home or self-care (01) ==
LOC: HO.CT 08:24
PROVIDERS: Visit Provider Internal Medicine Pulmonary Disease
DX: R91.1 Solitary pulmonary nodule (principal)
CPT/HCPCS: 71250

== ENCOUNTER → 2024-03-29 08:26 | Outpatient (BNV) | payer MEDICARE, MEDICAID, SELFPAY | PROVIDERS: Visit Provider Radiology Diagnostic Radiology | DX: R91.1 Solitary pulmonary nodule (principal) | CPT/HCPCS: 71250 ==

== ENCOUNTER 2024-04-14 09:08 | Outpatient (REF) | payer MEDICARE, MEDICAID, SELFPAY ==
--- NOTE | ~2024-04-14 | MM_ITS ---
EXAMINATION: BONE DENSITOMETRY CLINICAL INDICATION: Age-related osteoporosis without current pathological fracture. COMPARISON: Previous BD dated 03/29/2022 and baseline BD dated 07/19/2010. TECHNIQUE: Using a 3rdKind DXA System (software version: 13.1) manufactured by [employer], dual-energy x-ray absorptiometry was performed of the lumbar spine and left hip. The images are of good technical quality. Summary results are attached. FINDINGS: LEFT FEMUR, NECK: Current: BMD 0.742 g/cm2, Z-score 0.1, T-score -2.1, osteopenia. Prior: BMD 0.622 g/cm2. Baseline: BMD 0.747 g/cm2. LEFT FEMUR, TOTAL: Current: BMD 0.784 g/cm2, Z-score 0.3, T-score -1.8, osteopenia, 14.5% increase from previous, 2.5% decrease from baseline (<5% change is not significant). Prior: BMD 0.685 g/cm2. Baseline: BMD 0.804 g/cm2. AP SPINE L1-L3 (excluding L4): The data of L1-L4 has been changed to exclude the L4 vertebral body, because degenerative sclerosis at this level may cause overestimation of lumbar spine density. Current: BMD 0.867 g/cm2, Z-score -0.5, T-score -2.5, osteoporosis, 0.1% decrease from previous, 3.8% decrease from baseline (<5% change is not significant). Prior: BMD 0.868 g/cm2. Baseline: BMD 0.901 g/cm2. IDENTIFIED RISK FACTORS: Osteoporosis, menopause. HISTORY OF FRACTURE: None listed. MEDICATIONS: Vitamin D, ERT/SERMS. MM/XR DEXA axial skeleton IMPRESSION: 1. DIAGNOSIS: Osteoporosis based on the lowest T-score value of -2.5 in the lumbar spine applying World Health Organization criteria. 2. 10-YEAR FRACTURE RISK PREDICTION, FRAX: According to the guidelines, FRAX calculation should only be performed on patients in the osteopenia bone density category. Therefore, FRAX was not performed on this patient. 3. Treatment Recommendations: NOF guidelines recommend consideration for treatment in postmenopausal women and men age 50 and older presenting with the following: -A hip or vertebral (clinical or morphometric) fracture. -T-score less than or equal to -2.5 at the femoral neck or spine after appropriate evaluation to exclude secondary causes. -Low bone mass at the hip or spine and a 10-year fracture probability by FRAX of greater than or equal to 3% for hip fracture or greater than or equal to 20% for major osteoporotic fracture based on the [place] adapted WHO algorithm. 4. Other Recommendations: All treatment decisions require clinical judgment and consideration of individual patient factors, including patient preferences, comorbidities, previous drug use, risk factors not captured in the FRAX model (e.g. frailty, falls, vitamin D deficiency, increased bone turnover, interval significant decline in bone density) and possible under or overestimation of fracture risk by FRAX. Additional medical evaluation for secondary cause of low bone mineral density may be appropriate. FUTURE SCAN RECOMMENDATION: People with diagnosed cases of osteoporosis or at high risk for fracture should have regular bone mineral density tests. For patients eligible for Medicare, routine testing is allowed once every 2 years. The testing frequency can be increased to one year for patients who have rapidly progressing disease, those who are receiving or discontinuing medical therapy to restore bone mass, or have additional risk factors.
== END 2024-04-14 09:09 | disposition home or self-care (01) ==
LOC: HO.MAMMO 09:08
PROVIDERS: PCP Internal Medicine; Visit Provider Internal Medicine
DX: M81.0 Age-related osteoporosis without current pathological fracture (principal)
CPT/HCPCS: 77080

== ENCOUNTER 2024-05-13 09:48 | Outpatient (AMB) | payer MEDICARE, MEDICAID, SELFPAY ==
--- NOTE | 2024-05-13 09:49 | MHC.PC.OV ---
Vital Signs 05/13/24 09:50 Height 4 ft 10 in Weight 124 lb BMI 25.9 BP 138/72 Blood Pressure Location Lt brachial Position Sitting Pulse 70 Pulse Source Pulse Oximeter Pulse Oximetry (%) 99 Oxygen Delivery Method Room Air Intake Visit Reasons: pe Allergies No Known Allergies [No Known Allergies*] Allergy (Verified 05/13/24 09:51) Medication List - Last Reconciled 05/13/24 by Brenda Guadalupe MD alendronate (Fosamax) 70 mg PO QWEEK amlodipine 5 mg PO DAILY 90 days blood pressure monitor (Blood Pressure Kit) As directed cholecalciferol (vitamin D3) 50 mcg PO DAILY ketoconazole 2% 1 appl topical 2XW lisinopril 40 mg PO DAILY metoprolol succinate ER 200 mg PO DAILY omeprazole 20 mg PO DAILY peg 400-propylene glycol (PF) 0.4-0.3 % (Systane Ultra (PF)) 1 drp ophthalmic-Left BID-QID PRN simvastatin 5 mg PO BEDTIME Tobacco use date assessed: 11/04/23 Fall risk assessment: No Falls in past year Last assessed Fall Risk: 05/13/24 Dental Screening Dental Screen Date: 02/24/24 HPI pe HPI Details 79-year-old female with hypertension GERD impaired glucose tolerance hypercholesterolemia osteoporosis coming in for follow-up. Last seen in February 2020 patient's colonoscopy is due, mammogram is due. With the pulmonary nodule patient had a CT scan of the chest in May 04 2024 with stable pulmonary nodules with largest being 7 mm without change has multinodular thyroid gland advised repeat in 1 year. [facility] Medical History (Updated 05/13/24 @ 11:05 by Brenda Guadalupe MD) Multinodular thyroid Overweight (BMI 25.0-29.9) Abnormal finding on CT scan SOB (shortness of breath) on exertion Precordial chest pain Chest pain Pure hypercholesterolemia Benign essential hypertension Local reaction to immunization Post-nasal drip GERD (gastroesophageal reflux disease) Breast cancer screening by mammogram RLQ abdominal pain Osteoporosis Ulnar neuropathy Hypercholesterolemia Vitamin D deficiency Hx of osteoporosis GERD (gastroesophageal reflux disease) Hx of solitary pulmonary nodule Surgical History History of cataract surgery H/O colonoscopy History of cholecystectomy History of appendectomy Family History Father Hypertension Mother No problems noted. Brother Enlarged heart Social History (Updated 05/12/23 @ 14:07 by Brenda Guadalupe MD) Household Members: Family, Children and Friend(s) Housing: House Alcohol intake: current Alcohol intake frequency: does not drink Patient Tobacco Use Status: Never used Tobacco Tobacco use type: Cigarette Years Smoked: childhood for months e-Cigarette/Vaping Use: Never Used Second Hand Smoke Exposure: No service: No Current occupational status: retired Cognitive needs: No Hearing needs: No Vision needs: No Questionnaire PHQ-9 Over the last 2 weeks, how often have you been bothered by any of the following problems? 1. Little interest or pleasure in doing things: not at all 2. Feeling down, depressed, or hopeless: not at all 3. Trouble falling or staying asleep, or sleeping too much: not at all 4. Feeling tired or having little energy: not at all 5. Poor appetite or overeating: not at all 6. Feeling bad about yourself - or that you are a failure or have let yourself or your family down: not at all 7. Trouble concentrating on things, such as reading the newspaper or watching television: not at all 8. Moving or speaking so slowly that other people could have noticed. Or the opposite - being so fidgety or restless that you have been moving around a lot more than usual: not at all 9. Thoughts that you would be better off or of hurting yourself in some way: not at all Total score: 0 Depression Screening Interpretation: Negative Depression Screening Done: Yes Source: Developed by Drs. Francisco Aguirre, Loretta Deleon, Sedrick Roman and colleagues, with an educational calderon from [employer] ([employer]). Thrive Questionnaire Date Thrive assessed: 05/13/24 I am a: Patient What is your living situation today?: I choose not to answer this question Within the past 12 months, did the food you bought not last and you didn't have the money to get more?: I choose not to answer this question Within the past 12 months, did you worry whether your food would run out before you got money to buy more?: I choose not to answer this question Do you have trouble paying for medicines?: I choose not to answer this question Do you have trouble getting transportation to medical appointments?: I choose not to answer this question Do you have trouble paying your heating and electricity bill?: I choose not to answer this question Do you have trouble taking care of your child, family member or friend?: I choose not to answer this question Do you have trouble with day-to-day activities such as bathing, preparing meals, shopping, managing finances, etc.?: I choose not to answer this question Are you currently unemployed and looking for a job?: I choose not to answer this question Are you interested in more education?: I choose not to answer this question Please select the resources that you would like help with: None Currently or been in a relationship where the following occur: I choose not to answer THRIVE Score: 0 AUDIT C Alcohol Use Questionnaire (AUDIT-C) 1. How often do you have a drink containing alcohol?: Never 3. How often do you have six or more drinks on one occasion?: Never Total Score: 0 ALPA-7 AMB Questionnaire ALPA-7 Date ALPA - 7 assessed: 05/13/24 Feeling nervous, anxious, or on edge: 0 = Not at all Not being able to stop or control worryin = Not at all Worrying too much about different things: 0 = Not at all Trouble relaxin = Not at all Being so restless that it is hard to sit still: 0 = Not at all Becoming easily annoyed or irritable: 0 = Not at all Feeling afraid as if something awful might happen: 0 = Not at all Total ALPA-7 score (0-4 normal; 5-9 mild; 10-14 moderate; 15-21 severe): 0 Source: Developed by Drs. Francisco Aguirre, Loretta Deleon, Sedrick Roman and colleagues, with an educational calderon from [employer] ([employer]). Review of Systems Const Denies poor appetite and Denies weakness Eyes Denies no additional complaints ENT Reports Normal hearing present, Denies dizziness, Denies nasal congestion, Denies tinnitus and Denies sore throat Card Denies chest pain, Denies syncope, Denies rapid heart rate and Denies dyspnea Resp Denies cough and Denies dyspnea GI Denies change in stool character, Reports constipation, Denies diarrhea, Denies nausea and Denies vomiting Denies urinary frequency, Denies difficulty voiding and Denies dysuria Neuro Reports Normal hearing present, Denies confusion, Denies dizziness, Denies syncope and Denies weakness Psych Denies confusion Physical exam (Primary Care) Vital Signs: Last Vital Signs Pulse 70 05/13/24 09:50 BP 138/72 05/13/24 09:50 Pulse Ox 99 05/13/24 09:50 Oxygen Delivery Method Room Air 05/13/24 09:50 BMI result Body Mass Index 25.9 Tobacco/Smoking Status: Tobacco use Status Tobacco use date assessed 11/04/23 05/13/24 09:51 Patient Tobacco Use Status Never used Tobacco 05/13/24 09:51 Tobacco use type Cigarette 05/13/24 09:51 e-Cigarette/Vaping Use Never Used 05/13/24 09:51 PHQ-9: PHQ-9 Score PHQ-9: Total score 0 05/13/24 10:07 Depression Screening Interpretation: Negative Thrive Assessment: Date of Thrive Assessment Date Thrive assessed 05/13/24 05/13/24 09:51 Currently or been in a relationship where the following occur: I choose not to answer Const General: No confusion Orientation/consciousness: No confusion HENMT Head: Yes normocephalic Ears: external ears normal and TM's normal bilaterally Face and sinus: Yes normal facial exam Mouth: moist mucous membranes Throat: Yes tonsils normal Eyes Conjunctivae: conjunctivae normal Pupils: Equal, round and reactive pupils present and Pupil accommodation reflex normal Direct Ophthalmoscopy: normal light reflex Neck Neck: No lymphadenopathy Thyroid: Thyroid normal Chest Chest palpation & inspection: normal inspection of the chest Resp Effort & Inspection: normal respiratory effort and no audible wheezes Auscultation: clear to auscultation bilaterally, no crackles, no wheezes and lung sounds not diminished Cardio Rate: regular rate Rhythm: regular rhythm Peripheral pulses: radial pulses present and dorsalis pedis present GI Palpation (GI): no masses Auscultation: normal bowel sounds and normoactive bowel sounds Rectal Exam - Female: deferred Skin General skin exam: no rashes or lesions noted Rashes: no rashes Neuro General: No confusion Cranial nerves: Yes Equal, round and reactive pupils present and Yes Normal hearing present Cognition (Neuro): normal cognition Gait exam (Neuro): Normal gait present Motor exam (neuro): 5/5 motor strength present throughout Deep tendon reflexes (DTR's): Right brachioradialis reflex intensity grade: 2+, Left brachioradialis reflex intensity grade: 2+, Right patellar reflex intensity grade: 2+ and Left patellar reflex intensity grade: 2+ Extrem General: No edema Assessment and Plan Assessment & Plan (1) Annual physical exam: Code(s): Z00.00 - Encounter for general adult medical examination without abnormal findings Plan: Patient is advised to eat healthy, keep well hydrated, keep active and have adequate sleep. (2) Pulmonary nodule, left: Comment: February 2023Stable pulmonary nodules and back to earliest chest CT exam April [address]22. Chest CT follow-up in one year recommend Code(s): R91.1 - Solitary pulmonary nodule Plan: CT scan done 05/04/2024 stable pulmonary nodule repeat in 1 year (3) Age-related osteoporosis without current pathological fracture: Comment: 03/2022 last bone density 05/04/2024 Code(s): M81.0 - Age-related osteoporosis without current pathological fracture Plan: On alendronate bone density is better continue to monitor (4) Impaired glucose tolerance: Code(s): R73.02 - Impaired glucose tolerance (oral) Plan: Decrease the amount of carbohydrate intake, pasta, bread, rice and potatoes are all sugar and that is aside from all the sweet stuff, remember that fruits are good but they are Sweet also. (5) Hypercholesterolemia: Code(s): E78.00 - Pure hypercholesterolemia, unspecified Plan: Avoid fried foods, chicken skin, eggs, butter margarine, pastries and meat. Be it pork or beef they have a lot of cholesterol patient is on simvastatin 5 mg once a (6) GERD (gastroesophageal reflux disease): Code(s): K21.9 - Gastro-esophageal reflux disease without esophagitis Qualifiers: Esophagitis presence: without esophagitis Qualified Code(s): K21.9 - Gastro-esophageal reflux disease without esophagitis Plan: Avoid the foods that causes that usually spicy foods, tomato products, juices, coffee, soda and foods that your sensitive to. After eating do not lie down, allow 3-4 hours before in lie down. And keep the head of bed above 30 degrees to avoid the acid from going up. (7) Benign essential hypertension: Code(s): I10 - Essential (primary) hypertension Plan: Continue with blood pressure medication. Decrease salt intake and exercise on metoprolol 200 mg once a day lisinopril 40 mg once a day amlodipine 5 mg once a day (8) Breast cancer screening by mammogram: Code(s): Z12.31 - Encounter for screening mammogram for malignant neoplasm of breast Plan: Reminded about mammogram (9) Thyroid nodule: Comment: 4.1 right inferior August 2022, benign biopsy February 2023 Code(s): E04.1 - Nontoxic single thyroid nodule Plan: Continuing to monitor thyroid nodule. (10) Insomnia: Code(s): G47.00 - Insomnia, unspecified Plan: advsie melatonin (11) Numbness of left hand: Code(s): R20.0 - Anesthesia of skin Plan: decline testing for now Orders: Orders Hemoglobin A1c 7 Months R73.02 - Impaired glucose tolerance (oral) Complete Blood Count Auto Diff 7 Months R73.02 - Impaired glucose tolerance (oral) Comprehensive Met. Panel 7 Months R73.02 - Impaired glucose tolerance (oral) Lipid Panel 7 Months E78.00 - Pure hypercholesterolemia, unspecified, R73.02 - Impaired glucose tolerance (oral) Vitamin D 25-OH Total 7 Months R73.02 - Impaired glucose tolerance (oral) Medications: New melatonin 5 mg PO .QD 30 days 30 caps 3RF G47.00 - Insomnia, unspecified Coding Level of Care Code Est Pt Prev Care >65y(26284) Diagnoses Annual physical exam Z00.00 Pulmonary nodule, left R91.1 Age-related osteoporosis without current pathological fracture M81.0 Impaired glucose tolerance R73.02 Hypercholesterolemia E78.00 Gastroesophageal reflux disease without esophagitis K21.9 Esophagitis presence: without esophagitis Benign essential hypertension I10 Breast cancer screening by mammogram Z12.31 Thyroid nodule E04.1 Insomnia G47.00 Numbness of left hand R20.0 Additional Codes PHQ-9 - 33180 - PHQ-9 Billing: ([id number])
[2024-05-13 09:50] VITALS: BP 138/72; PULSE 70; O2SAT 99; BMI 25.9
== END 2024-05-13 13:48 | disposition home or self-care (01) ==
PROVIDERS: PCP Internal Medicine; Visit Provider Internal Medicine
DX: Z00.00 Encounter for general adult medical examination without abnormal findings (principal); R91.1 Solitary pulmonary nodule; M81.0 Age-related osteoporosis without current pathological fracture; R73.02 Impaired glucose tolerance (oral); E78.00 Pure hypercholesterolemia, unspecified; K21.9 Gastro-esophageal reflux disease without esophagitis; I10 Essential (primary) hypertension; Z12.31 Encounter for screening mammogram for malignant neoplasm of breast; E04.1 Nontoxic single thyroid nodule; G47.00 Insomnia, unspecified; R20.0 Anesthesia of skin
CPT/HCPCS: 99397

== ENCOUNTER 2024-07-14 09:31 | Outpatient (AMB) | payer MEDICAID, SELFPAY ==
--- NOTE | 2024-07-14 09:36 | MHC.OFFVIS ---
Vital Signs 07/14/24 09:39 Height 4 ft 10 in Weight 123 lb 14.397 oz BMI 25.9 BP 128/78 Blood Pressure Location Lt brachial Position Sitting Pulse 66 Pulse Source Pulse Oximeter Pulse Oximetry (%) 100 Oxygen Delivery Method Room Air Intake Visit Reasons: Colonoscopy Screening Intake Note: Relevant Flags or Indicators ? Requires Educational Technology Coordinator? Y Merrytera presents in office today for a scheduled colo consult. CC; No recent labs, diagnostics, or med orders placed. Pt has previous hx of colo w/ TA presentation (2020 w/ Heather) Relevant GI Sx as reported per pt? Bloating ? Abdominal distention ? Hx of any recent surgeries? None recently Educational Technology Coordinator Required: Yes Educational Technology Coordinator Services: Educational Technology Coordinator Present Information Interpreted: non-clinical & clinical Allergies No Known Allergies [No Known Allergies*] Allergy (Verified 07/14/24 09:36) HPI HPI Colonoscopy Screening: Details: LAST VISIT: Tubular adenoma of colon Plan 75-year-old with previous history of tubular adenoma. Three polyps found on recent colonoscopy. The polyps were sessile serrated 8-12 mm. Tubular adenoma with no high-grade dysplasia or carcinoma found. Patient will have colonoscopy in 3 years as these polyps were sessile in serrated. More difficult to excise. Patient verbalizes understanding. Patient was educated to share with her blood relatives that colorectal screening should be done at age 45 or sooner if any symptoms of dark stool, blood in the stool, unintentional weight loss or ribbon like stool symptoms. Patient is agreeable to plan of care. Denies any symptoms at this moment. Status post colonoscopy Plan Colonoscopy results discussed with patient. Patient denies any ill effects from prep, anesthesia or procedure itself. Denies any other GI symptoms. As mentioned above patient will have colonoscopy repeated in 3 years. She verbalizes understanding and is agreeable to plan of care. She was given the opportunity to ask questions and all questions answered. TODAY'S VISIT Patient is here today for follow-up and to discuss going for colonoscopy. Last colonoscopy 3 years ago, tubular adenoma was found. Patient reports that she did well with colonoscopy last time. Denies any cardiac or respiratory symptoms. No issues with anesthesia in the past. No history of sleep apnea. Not on any anticoagulation medication. Patient reports that she is moving her bowels without any issues. History of acid reflux, taking omeprazole daily. Denies dyspepsia, dysphagia or odynophagia. Patient reports postprandial abdominal bloating depending on what she eats. Patient reports that she tries to eat healthy, eating mostly home cooked meals. [facility] Medical History Multinodular thyroid Overweight (BMI 25.0-29.9) Abnormal finding on CT scan SOB (shortness of breath) on exertion Precordial chest pain Chest pain Pure hypercholesterolemia Benign essential hypertension Local reaction to immunization Post-nasal drip GERD (gastroesophageal reflux disease) Breast cancer screening by mammogram RLQ abdominal pain Osteoporosis Ulnar neuropathy Hypercholesterolemia Vitamin D deficiency Hx of osteoporosis GERD (gastroesophageal reflux disease) Hx of solitary pulmonary nodule Surgical History History of cataract surgery H/O colonoscopy History of cholecystectomy History of appendectomy Family History Father Hypertension Mother No problems noted. Brother Enlarged heart Social History Household Members: Family, Children and Friend(s) Housing: House Alcohol intake: current Alcohol intake frequency: does not drink Patient Tobacco Use Status: Never used Tobacco Tobacco use type: Cigarette Years Smoked: childhood for months e-Cigarette/Vaping Use: Never Used Second Hand Smoke Exposure: No service: No Current occupational status: retired Cognitive needs: No Hearing needs: No Vision needs: No Review of Systems Const Denies weight gain and Denies weight loss ENT Reports no additional complaints, Denies dysphagia and Denies odynophagia Card Reports no additional complaints Resp Reports no additional complaints GI Denies abdominal pain, Denies belching, Denies melena, Reports bloating, Denies change in bowel habits, Denies dysphagia, Denies excessive flatus, Denies dyspepsia, Denies heartburn, Denies diarrhea, Denies loose stools, Denies nausea, Denies odynophagia and Denies vomiting Reports no additional complaints Musc Reports no additional complaints Neuro Reports no additional complaints Psych Reports no additional complaints Endo Reports no additional complaints Physical Exam Vital Signs: Last Vital Signs Pulse 66 07/14/24 09:39 BP 128/78 07/14/24 09:39 Pulse Ox 100 07/14/24 09:39 Oxygen Delivery Method Room Air 07/14/24 09:39 BMI result Body Mass Index 25.9 Const General: healthy appearing, no acute distress and well developed Nutritional Appearance: well nourished Orientation/consciousness: patient oriented x3 Resp Effort & Inspection: normal respiratory effort, able to speak in complete sentences, no tracheal deviation and symmetric chest movement Auscultation: clear to auscultation bilaterally Cardio Rate: regular rate GI Inspection: Yes normal to inspection and No distended Palpation (GI): Soft to palpation, not firm, nontender and No hepatosplenomegaly present Auscultation: normal bowel sounds General: Yes no CVA tenderness Back/Spine/Pelvis Back: no CVA tenderness Skin General skin exam: elasticity normal, turgor normal and dry skin Neuro General: patient oriented x3 Psych Appearance: grossly normal Mental Status: mental status grossly normal Assessment & Plan Assessment & Plan (1) Tubular adenoma of colon: Code(s): D12.6 - Benign neoplasm of colon, unspecified Category: Medical (2) Screen for colon cancer: Code(s): Z12.11 - Encounter for screening for malignant neoplasm of colon Plan Patient denies any cardiac or respiratory symptoms. No issues with anesthesia in the past. Not on any anticoagulants. Denies history of sleep apnea. What to expect before during and after procedure discussed with patient. Stressed the importance of good bowel prep and clear liquid diet day before procedure. I will see patient after the procedure, sooner as needed basis. Patient is agreeable to this plan and verbalizes understanding of instructions. She was given the opportunity to ask questions and all questions answered. Thank you for allowing me to participate in her care Medications: New bisacodyl (Dulcolax (bisacodyl)) take 4 tabs at noon the day before your colonoscopy 20 mg (4 x 5 mg) PO ONCE 4 tabs 0RF 1 day Z12.11 - Encounter for screening for malignant neoplasm of colon polyethylene glycol 3350 (Miralax) As directed by gastroenterology department at [facility] 238 grams PO ONCE 238 grams 0RF Z12.11 - Encounter for screening for malignant neoplasm of colon Coding Level of Care Code Est Pt Level 3 (92656) Diagnoses Tubular adenoma of colon D12.6 Screen for colon cancer Z12.11 Time Spent (min) 30 Comment 20 minutes spent with patient and additional 10 minutes spent reviewing her records
[2024-07-14 09:39] VITALS: BP 128/78; PULSE 66; O2SAT 100; BMI 25.9
== END 2024-07-14 10:04 | disposition home or self-care (01) ==
LOC: HO.HGI 09:32
PROVIDERS: PCP Internal Medicine; Visit Provider Nurse Practitioner Family
DX: D12.6 Benign neoplasm of colon, unspecified (principal); Z12.11 Encounter for screening for malignant neoplasm of colon
CPT/HCPCS: 99213

== ENCOUNTER → 2024-07-14 09:31 | Outpatient (BNVA) | payer MEDICAID, SELFPAY | PROVIDERS: PCP Internal Medicine; Visit Provider Nurse Practitioner Family | DX: Z12.11 Encounter for screening for malignant neoplasm of colon (principal); D12.6 Benign neoplasm of colon, unspecified | CPT/HCPCS: 99212 ==

== ENCOUNTER 2025-05-09 09:26 | Outpatient (REF) | payer MEDICARE, MEDICAID, SELFPAY ==
[2025-05-09 09:42] LABS: MANUAL DIFF FLAG NO
[2025-05-09 10:14] LABS: Hematocrit 40.1 % (37.0-47.0); Hemoglobin 12.7 g/dl (12.0-16.0); Imm Gran Abs Auto 0.01 X10*3/uL (0.00-0.03); Imm Gran Pct Auto 0.2 % (0.0-0.4); Lymphocytes Absolute Auto 2.3 X10*3/uL (1.2-4.9); Mean Corpuscular HGB Conc 31.7 g/dl (31.0-35.0); Mean Corpuscular Hemoglobin 26.2 pg (27.0-33.0); Mean Corpuscular Volume 82.7 fL (80.0-98.0); NRBC Abs Auto 0.000 X10*3/uL (0.0-0.012); NRBC Pct Auto 0.0 /100WBC (0.0-0.2); Platelet Count 245 X10*3/uL (160-400); Red Blood Count 4.85 X10*6/uL (4.20-5.50); White Blood Count 5.2 X10*3/uL (4.8-10.8)
[2025-05-09 10:49] LABS: Hemoglobin A1C 157.7653 umol/L; Total Hemoglobin (HGBA1C) 3436.6656 umol/L
[2025-05-09 11:04] LABS: Alanine Aminotransferase 26 U/L (0-31); Albumin Level 4.5 g/dL (3.5-5.0); Alkaline Phosphatase 66 U/L (39-117); Anion Gap 12 (12-20); Aspartate Amino Transferase 23 U/L (5-31); Blood Urea Nitrogen 16 mg/dL (9-16); Calcium 9.3 mg/dL (8.4-10.2); Carbon Dioxide 26 mmol/L (22-29); Chloride 108 mmol/L (96-108); Cholesterol 230 mg/dL (<200); Estimated Glomerular Filt Rate > 60; HDL Cholesterol 57 mg/dL (>40); Potassium 3.8 mmol/L (3.3-5.1); Sodium 142 mmol/L (135-145); Total Protein 7.4 g/dL (6.5-8.0); Triglycerides 171 mg/dL (<150)
== END 2025-05-09 09:27 | disposition home or self-care (01) ==
LOC: HO.LAB 09:26
PROVIDERS: PCP Internal Medicine; Visit Provider Internal Medicine
DX: R73.02 Impaired glucose tolerance (oral) (principal); E78.00 Pure hypercholesterolemia, unspecified
CPT/HCPCS: 36415; 80053; 80061; 82306; 83036; 85025

== ENCOUNTER 2025-05-19 10:03 | Outpatient (AMB) | payer MEDICAID, SELFPAY ==
--- NOTE | 2025-05-19 10:07 | A.OFFPC_ITS ---
Vital Signs 05/19/25 10:08 Height 4 ft 10 in Weight 127 lb BMI 26.5 BP 142/70 H Blood Pressure Location Lt brachial Position Sitting Pulse 67 Pulse Source Pulse Oximeter Pulse Oximetry (%) 98 Oxygen Delivery Method Room Air Intake Visit Reasons: ANNUAL Allergies No Known Allergies (No Known Allergies*) Allergy (Verified 05/19/25 10:08) Medication List - Last Reconciled 05/19/25 by Brenda Guadalupe MD amlodipine 5 mg PO DAILY 90 days bisacodyl (Dulcolax (bisacodyl)) 20 mg (4 x 5 mg) PO ONCE 1 day blood pressure monitor (Blood Pressure Kit) As directed cholecalciferol (vitamin D3) 50 mcg PO DAILY ketoconazole 2% 1 appl topical 2XW lisinopril 40 mg PO DAILY melatonin 5 mg PO .QD 30 days metoprolol succinate ER 200 mg PO DAILY omeprazole 20 mg PO DAILY peg 400-propylene glycol (PF) 0.4-0.3 % (Systane Ultra (PF)) 1 drp ophthalmic- Left BID-QID PRN polyethylene glycol 3350 (Miralax) 238 grams PO ONCE simvastatin 5 mg PO BEDTIME Tobacco use date assessed: 05/19/25 Fall risk assessment: No Falls in past year Last assessed Fall Risk: 05/19/25 Dental Screening Dental Screen Date: 05/19/25 Did you have a dental visit in the last 12 months?: Yes Did you have a dental problem in the last 6 months where you did not have access to dental care?: No Was dental information given to patient?: Patient has dentist [facility] Medical History Multinodular thyroid Overweight (BMI 25.0-29.9) Abnormal finding on CT scan SOB (shortness of breath) on exertion Precordial chest pain Chest pain Pure hypercholesterolemia Benign essential hypertension Local reaction to immunization Post-nasal drip GERD (gastroesophageal reflux disease) Breast cancer screening by mammogram RLQ abdominal pain Osteoporosis Ulnar neuropathy Hypercholesterolemia Vitamin D deficiency Hx of osteoporosis GERD (gastroesophageal reflux disease) Hx of solitary pulmonary nodule Surgical History History of cataract surgery H/O colonoscopy History of cholecystectomy History of appendectomy Family History Father Hypertension Mother No problems noted. Brother Enlarged heart Social History (Updated 05/19/25 @ 10:58 by Brenda Guadalupe MD) Household Members: Family, Children and Friend(s) Housing: House Alcohol intake: current Alcohol intake frequency: does not drink Comment: once a month 1 beer Patient Tobacco Use Status: Never used Tobacco Tobacco use type: Cigarette Years Smoked: childhood for months e-Cigarette/Vaping Use: Never Used Second Hand Smoke Exposure: No service: No Current occupational status: retired Cognitive needs: No Hearing needs: No Vision needs: No Questionnaire PHQ-9 Over the last 2 weeks, how often have you been bothered by any of the following problems? 1. Little interest or pleasure in doing things: not at all 2. Feeling down, depressed, or hopeless: several days 3. Trouble falling or staying asleep, or sleeping too much: several days 4. Feeling tired or having little energy: not at all 5. Poor appetite or overeating: not at all 6. Feeling bad about yourself - or that you are a failure or have let yourself or your family down: not at all 7. Trouble concentrating on things, such as reading the newspaper or watching television: not at all 8. Moving or speaking so slowly that other people could have noticed. Or the opposite - being so fidgety or restless that you have been moving around a lot more than usual: not at all 9. Thoughts that you would be better off or of hurting yourself in some way: not at all Total score: 2 Depression Screening Interpretation: Positive Depression Screening Done: Yes Source: Developed by Drs. Francisco Aguirre, Loretta Deleon, Sedrick Roman and colleagues, with an educational calderon from [employer]. Thrive Questionnaire Date Thrive assessed: 05/19/25 I am a: Patient What is your living situation today?: I have a steady place to live Within the past 12 months, did the food you bought not last and you didn't have the money to get more?: Never true Within the past 12 months, did you worry whether your food would run out before you got money to buy more?: Sometimes True Do you have trouble paying for medicines?: No Do you have trouble getting transportation to medical appointments?: No Do you have trouble paying your heating and electricity bill?: No Do you have trouble taking care of your child, family member or friend?: No Do you have trouble with day-to-day activities such as bathing, preparing meals, shopping, managing finances, etc.?: No Are you currently unemployed and looking for a job?: No Are you interested in more education?: Yes Please select the resources that you would like help with: Education Currently or been in a relationship where the following occur: No concerns reported THRIVE Score: 1 AUDIT C Alcohol Use Questionnaire (AUDIT-C) 1. How often do you have a drink containing alcohol?: Never 3. How often do you have six or more drinks on one occasion?: Never Total Score: 0 ALPA-7 AMB Questionnaire ALPA-7 Date ALPA - 7 assessed: 05/19/25 Feeling nervous, anxious, or on edge: 0 = Not at all Not being able to stop or control worryin = Not at all Worrying too much about different things: 0 = Not at all Trouble relaxin = Not at all Being so restless that it is hard to sit still: 0 = Not at all Becoming easily annoyed or irritable: 2 = More than half the days Feeling afraid as if something awful might happen: 0 = Not at all Total ALPA-7 score (0-4 normal; 5-9 mild; 10-14 moderate; 15-21 severe): 2 Source: Developed by Drs. Francisco Aguirre, Loretta Deleon, Sedrick Roman and colleagues, with an educational calderon from [employer]. Review of Systems Const Denies poor appetite and Denies weakness Eyes Denies no additional complaints ENT Reports Normal hearing present, Denies dizziness, Denies nasal congestion, Denies tinnitus and Denies sore throat Card Denies chest pain, Denies syncope, Denies rapid heart rate and Denies dyspnea Resp Denies cough and Denies dyspnea GI Denies change in stool character, Reports constipation, Denies diarrhea, Denies nausea and Denies vomiting Denies urinary frequency, Denies difficulty voiding and Denies dysuria Neuro Reports Normal hearing present, Denies confusion, Denies dizziness, Denies syncope and Denies weakness Psych Denies confusion Physical exam (Primary Care) Vital Signs: Last Vital Signs Pulse 67 05/19/25 10:08 BP 142/70 H 05/19/25 10:08 Pulse Ox 98 05/19/25 10:08 Oxygen Delivery Method Room Air 05/19/25 10:08 BMI result Body Mass Index 26.5 Tobacco/Smoking Status: Tobacco use Status Tobacco use date assessed 05/19/25 05/19/25 10:09 Patient Tobacco Use Status Never used Tobacco 05/19/25 10:58 Tobacco use type Cigarette 05/19/25 10:58 e-Cigarette/Vaping Use Never Used 05/19/25 10:58 PHQ-9: PHQ-9 Score PHQ-9: Total score 2 05/19/25 11:26 Depression Screening Interpretation: Positive Thrive Assessment: Date of Thrive Assessment Date Thrive assessed 05/19/25 05/19/25 10:09 Currently or been in a relationship where the following occur: No concerns reported Const General: No confusion Orientation/consciousness: No confusion HENMT Head: Yes normocephalic Ears: external ears normal and TM's normal bilaterally Face and sinus: Yes normal facial exam Mouth: moist mucous membranes Throat: Yes tonsils normal Eyes Conjunctivae: conjunctivae normal Pupils: Equal, round and reactive pupils present and Pupil accommodation reflex normal Direct Ophthalmoscopy: normal light reflex Neck Neck: No lymphadenopathy Thyroid: Thyroid normal Chest Chest palpation & inspection: normal inspection of the chest Resp Effort & Inspection: normal respiratory effort and no audible wheezes Auscultation: clear to auscultation bilaterally, no crackles, no wheezes and lung sounds not diminished Cardio Rate: regular rate Rhythm: regular rhythm Peripheral pulses: radial pulses present and dorsalis pedis present GI Palpation (GI): no masses Auscultation: normal bowel sounds and normoactive bowel sounds Rectal Exam - Female: deferred Skin General skin exam: no rashes or lesions noted Rashes: no rashes Neuro General: No confusion Cranial nerves: Yes Equal, round and reactive pupils present and Yes Normal hearing present Cognition (Neuro): normal cognition Gait exam (Neuro): Normal gait present Motor exam (neuro): 5/5 motor strength present throughout Deep tendon reflexes (DTR's): Right brachioradialis reflex intensity grade: 2+, Left brachioradialis reflex intensity grade: 2+, Right patellar reflex intensity grade: 2+ and Left patellar reflex intensity grade: 2+ Extrem General: No edema Results AMB Urinalysis, Automated UA Leukoctes 0 Aleida/uL Last Edit by Susana Adams, [facility] on 05/19/25 11:27 UA Nitrite Negative Last Edit by Susana Adams, [facility] on 05/19/25 11:27 UA Urobilinogen 0.2 mg/dL Last Edit by Susana Adams, [facility] on 05/19/25 11:27 UA Protein 0 mg/dL Last Edit by Susana Adams, [facility] on 05/19/25 11:27 UA pH 6.0 Last Edit by Susana Adams, [facility] on 05/19/25 11:27 UA Blood 0 Ivan/uL Last Edit by Susana Adams, [facility] on 05/19/25 11:27 UA Specific [place] 1.010 Last Edit by Susana Adams, [facility] on 05/19/25 11:27 UA Ketone Negative Last Edit by Susana Adams, [facility] on 05/19/25 11:27 UA Bilirubin 0 mg/dL Last Edit by Susana Adams, [facility] on 05/19/25 11:27 UA Glucose 0 mg/dL Last Edit by Susana Adams, [facility] on 05/19/25 11:27 Results Reviewed Results Reviewed: Laboratory Last Values Urine pH (Auto) 6.0 05/19/25 11:25 Specific [place] (Auto) 1.010 05/19/25 11:25 Urine Protein (Auto) 0 mg/dL 05/19/25 11:25 Glucose (UA)(Auto) 0 mg/dL 05/19/25 11:25 Urine Ketones (Auto) Negative 05/19/25 11:25 Urine Blood (Auto) 0 Ivan/uL 05/19/25 11:25 Urine Nitrite (Auto) Negative 05/19/25 11:25 Urine Bilirubin (Auto) 0 mg/dL 05/19/25 11:25 Urine Urobilinogen (Auto) 0.2 mg/dL 05/19/25 11:25 Leukocyte Esterase (Auto) 0 Aleida/uL 05/19/25 11:25 Coding Level of Care Code Est Pt Prev Care >65y(50246) Diagnoses Annual physical exam Z00.00 Tubular adenoma of colon D12.6 Impaired glucose tolerance R73.02 Benign essential hypertension I10 Hypercholesterolemia E78.00 Overweight (BMI 25.0-29.9) E66.3 Gastroesophageal reflux disease without esophagitis K21.9 Esophagitis presence: without esophagitis Pulmonary nodule, left R91.1 Assessment & Plan Assessment & Plan (1) Annual physical exam: Code(s): Z00.00 - Encounter for general adult medical examination without abnormal findings Category: Medical Plan: Patient is advised to eat healthy, keep well hydrated, keep active and have adequate sleep. (2) Tubular adenoma of colon: Code(s): D12.6 - Benign neoplasm of colon, unspecified Category: Medical Plan: Patient is reminded about colonoscopy (3) Impaired glucose tolerance: Code(s): R73.02 - Impaired glucose tolerance (oral) Category: Medical Plan: Decrease the amount of carbohydrate intake, pasta, bread, rice and potatoes are all sugar and that is aside from all the sweet stuff, remember that fruits are good but they are Sweet also. (4) Benign essential hypertension: Code(s): I10 - Essential (primary) hypertension Category: Medical Plan: Continue with blood pressure medication. Decrease salt intake and exercise patient on amlodipine 5 mg once a week lisinopril 40 mg once a day metoprolol 200 mg once a day (5) Hypercholesterolemia: Code(s): E78.00 - Pure hypercholesterolemia, unspecified Category: Medical Plan: Avoid fried foods, chicken skin, eggs, butter margarine, pastries and meat. Be it pork or beef they have a lot of cholesterol LDL goal of less than 130 and triglyceride of less than 150 (6) Overweight (BMI 25.0-29.9): Code(s): E66.3 - Overweight Category: Medical Plan: Diet and exercise (7) GERD (gastroesophageal reflux disease): Code(s): K21.9 - Gastro-esophageal reflux disease without esophagitis Category: Medical Qualifiers: Esophagitis presence: without esophagitis Qualified Code(s): K21.9 - Gastro-esophageal reflux disease without esophagitis Plan: Avoid the foods that causes that usually spicy foods, tomato products, juices, coffee, soda and foods that your sensitive to. After eating do not lie down, allow 3-4 hours before in lie down. And keep the head of bed above 30 degrees to avoid the acid from going up. (8) Pulmonary nodule, left: Comment: February 2023Stable pulmonary nodules and back to earliest chest CT exam April [address]22. Chest CT follow-up in one year recommend Code(s): R91.1 - Solitary pulmonary nodule Category: Medical Plan History of Present Illness The patient is a 80-year-old female presenting for a physical exam and follow-up on chronic conditions. The patient has a history of hypercholesterolemia, with recent blood work indicating elevated cholesterol levels. Her LDL cholesterol has increased from 122 to 140, and triglycerides have risen from 116 to 171. She is currently on simvastatin for cholesterol management. The patient has a history of hypertension and is currently on amlodipine, lisinopril, and metoprolol. Blood pressure readings at home have been elevated, prompting a discussion on medication adherence and potential adjustments. The patient has a history of a tubular adenoma of the colon, with the last colonoscopy performed in November 2020. A follow-up colonoscopy is planned due to the presence of a polyp that requires monitoring. The patient has osteoporosis and was previously on alendronate, which she has since discontinued. She is advised to maintain calcium and vitamin D intake through diet and supplements. The patient has a lung nodule measuring 7 mm, which is being monitored with a follow-up CT scan planned. The patient reports a history of smoking in her youth but has since quit. Health Maintenance - Colonoscopy scheduled for follow-up on tubular adenoma - CT scan planned for lung nodule monitoring - Blood work scheduled in three months to monitor cholesterol and blood sugar levels - Vitamin D supplementation recommended Social History - Former smoker, quit smoking in youth - Occasionally consumes alcohol, approximately one glass at a time Review of Systems - Cardiovascular: Denies chest pain or palpitations - Respiratory: Denies dyspnea or cough - Gastrointestinal: Reports occasional nausea, denies vomiting - Musculoskeletal: Denies joint pain or stiffness - Neurological: Denies headaches or dizziness Physical Exam General: Cooperative, healthy appearing, comfortable, no acute distress and well developed Orientation: Patient oriented x3 Limitations: No limitations Head: Normal to inspection Ears: Hearing grossly normal bilaterally Nose: Normal external nose present Face and sinus: Normal facial exam Eyes: Appearance normal, both eyes and all related structures Neck: Normal visual inspection and Yes full ROM Respiratory: Normal respiratory effort and able to speak in complete sentences. Clear to auscultation bilaterally Cardiovascular: Regular rate and rhythm. Normal S1 and S2 GI: Normal to inspection. Soft to palpation and nontender Skin: No rashes or lesions noted Neuro: Patient oriented x3 Extremities: Normal to inspection Results - Labs: Normal blood count, no anemia, electrolytes normal, kidney function good, blood sugar 107 mg/dL, hemoglobin A1c 6.4%, cholesterol 230 mg/dL, LDL 140 mg/dL, triglycerides 171 mg/dL Plan Patient was informed and verbally consented to the use of an ambient scribe for clinic note documentation during this visit. 1. Hypercholesterolemia The patient is advised to continue simvastatin for cholesterol management and to adhere to dietary modifications to reduce cholesterol intake. Follow-up blood work is scheduled in three months to monitor cholesterol levels. 2. Hypertension The patient is currently on amlodipine, lisinopril, and metoprolol for hypertension management. She is advised to monitor blood pressure at home and bring a log of readings to the next visit for potential medication adjustments. 3. Tubular Adenoma Of The Colon A follow-up colonoscopy is planned to monitor the tubular adenoma and any potential changes. 4. Lung Nodule A CT scan is scheduled to monitor the lung nodule for any changes in size or appearance. 5. Osteoporosis The patient is advised to maintain calcium and vitamin D intake through diet and supplements to support bone health. Discussion Notes During the visit, I discussed the importance of managing cholesterol and blood pressure through medication and lifestyle changes. We reviewed the need for follow-up colonoscopy and CT scan to monitor the tubular adenoma and lung nodule, respectively. I emphasized the importance of maintaining bone health through calcium and vitamin D supplementation. Patient Instructions - Continue taking simvastatin as prescribed. - Monitor blood pressure at home and keep a log of readings. - Follow a diet low in cholesterol and saturated fats. - Ensure adequate intake of calcium and vitamin D. - Attend scheduled follow-up appointments for colonoscopy and CT scan. Orders: Orders AMB Urinalysis Automated Today G47.00 - Insomnia, unspecified, Z13.9 - Encounter for screening, unspecified CT chest wo IV con Today R91.1 - Solitary pulmonary nodule Hemoglobin A1c 3 Months R73.02 - Impaired glucose tolerance (oral) Comprehensive Met. Panel 3 Months R73.02 - Impaired glucose tolerance (oral) Lipid Panel 3 Months E78.00 - Pure hypercholesterolemia, unspecified, R73.02 - Impaired glucose tolerance (oral) Referrals Gastroenterology Referral D12.6 - Benign neoplasm of colon, unspecified Medications: Refilled cholecalciferol (vitamin D3) 50 mcg PO DAILY 90 caps 3RF I10 - Essential (primary) hypertension
[2025-05-19 10:08] VITALS: BP 142/70; PULSE 67; O2SAT 98; BMI 26.5
== END 2025-05-19 11:25 | disposition home or self-care (01) ==
LOC: HO.HMCH 10:03
PROVIDERS: PCP Internal Medicine; Visit Provider Internal Medicine
DX: Z00.00 Encounter for general adult medical examination without abnormal findings (principal); D12.6 Benign neoplasm of colon, unspecified; R73.02 Impaired glucose tolerance (oral); I10 Essential (primary) hypertension; E78.00 Pure hypercholesterolemia, unspecified; E66.3 Overweight; K21.9 Gastro-esophageal reflux disease without esophagitis; R91.1 Solitary pulmonary nodule; Z13.9 Encounter for screening, unspecified; G47.00 Insomnia, unspecified

== ENCOUNTER → 2025-05-19 10:03 | Outpatient (BNVA) | payer MEDICARE, MEDICAID, SELFPAY | PROVIDERS: PCP Internal Medicine; Visit Provider Internal Medicine | DX: Z00.00 Encounter for general adult medical examination without abnormal findings (principal); R73.02 Impaired glucose tolerance (oral); I10 Essential (primary) hypertension; E78.00 Pure hypercholesterolemia, unspecified; E66.3 Overweight; K21.9 Gastro-esophageal reflux disease without esophagitis; R91.1 Solitary pulmonary nodule; M81.0 Age-related osteoporosis without current pathological fracture; Z86.0100 Personal history of colon polyps, unspecified | CPT/HCPCS: 81003; 96127; 99397 ==

== ENCOUNTER 2025-08-01 15:19 | Outpatient (REF) | payer MEDICARE, MEDICAID, SELFPAY ==
--- NOTE | ~2025-08-01 | CT_ITS ---
EXAMINATION: CT CHEST WITHOUT CONTRAST CLINICAL INFORMATION: Solitary pulmonary nodule COMPARISON: CT chest 03/29/[address] 02/17/2023 has reported. TECHNIQUE: Multidetector volumetric CT imaging of the chest was done. Axial MIP volume rendering provided. Sagittal and coronal reformatted images were obtained. This CT examination was performed using dose optimization techniques as appropriate, variously including the following: *Automated exposure control *Adjustment of mA and/or kV according to patient size (this includes techniques or standardized protocols for targeted exams where dose is matched to indication/reason for exam; i.e. extremities or head) *Use of iterative reconstruction technique DLP: 92 mGy/cm. FINDINGS: LABVIEW PROGRAMMER: Well-expanded lungs. LUNGS: The lungs are expanded without any acute pneumonic process. There is 6 x 8 mm noncalcified nodule left upper lobe/lingula on axial image 214/4. There are several calcified nodules in the left upper lobe measuring 3 mm axial image 170/4, 2 mm axial image 147/4. No new nodules are seen. MEDIASTINUM: Thyroid lobes are symmetrical and normal. Punctate calcification is seen in the right lobe. The central trachea and the bronchi are widely patent. Heart size and the great vessels are normal caliber. No pericardial effusion seen. No abnormal size mediastinal hilar lymphadenopathy seen. CORONARY ARTERY CALCIFICATION: Mild coronary artery calcification is present. PLEURA: There is no pleural effusion. No pleural mass or thickening. AXILLA: No lymphadenopathy. UPPER ABDOMEN: Visualized liver, spleen and pancreas is unremarkable. OSSEOUS STRUCTURES: No aggressive lytic or sclerotic process seen. CT/CT chest wo IV con IMPRESSION: Stable pulmonary nodules. No new nodule seen. No abnormal mediastinal adenopathy. Fleischner guidelines were followed. Electronically signed by: Ramon Perez MD 08/01/2025 04:35 PM [facility]
== END 2025-08-01 15:20 | disposition home or self-care (01) ==
LOC: HO.CT 15:19
PROVIDERS: PCP Internal Medicine; Visit Provider Internal Medicine
DX: R91.1 Solitary pulmonary nodule (principal)
CPT/HCPCS: 71250

== ENCOUNTER → 2025-08-01 15:20 | Outpatient (BNV) | payer MEDICARE, MEDICAID, SELFPAY | PROVIDERS: PCP Internal Medicine; Visit Provider Radiology Diagnostic Radiology | DX: R91.8 Other nonspecific abnormal finding of lung field (principal) | CPT/HCPCS: 71250 ==

== ENCOUNTER 2025-09-12 14:40 | Outpatient (AMB) | payer MEDICARE, MEDICAID, SELFPAY ==
[2025-09-12 14:52] VITALS: BP 120/62; PULSE 61; O2SAT 98; BMI 26.3
--- NOTE | 2025-09-12 14:52 | A.OFFPC_ITS ---
Vital Signs 09/12/25 14:52 Height 4 ft 10 in Weight 126 lb BMI 26.3 BP 120/62 Blood Pressure Location Lt brachial Position Sitting Pulse 61 Pulse Source Pulse Oximeter Pulse Oximetry (%) 98 Oxygen Delivery Method Room Air Intake Visit Reasons: 3 month f/u Allergies No Known Allergies (No Known Allergies*) Allergy (Verified 09/12/25 14:52) Medication List - Last Reconciled 09/12/25 by Brenda Guadalupe MD amlodipine 5 mg PO DAILY 90 days bisacodyl (Dulcolax (bisacodyl)) 20 mg (4 x 5 mg) PO ONCE 1 day blood pressure monitor (Blood Pressure Kit) As directed cholecalciferol (vitamin D3) 50 mcg PO DAILY ketoconazole 2% 1 appl topical 2XW lisinopril 40 mg PO DAILY melatonin 5 mg PO .QD 30 days metoprolol succinate ER 200 mg PO DAILY omeprazole 20 mg PO DAILY peg 400-propylene glycol (PF) 0.4-0.3 % (Systane Ultra (PF)) 1 drp ophthalmic- Left BID-QID PRN polyethylene glycol 3350 (Miralax) 238 grams PO ONCE simvastatin 5 mg PO BEDTIME Tobacco use date assessed: 05/19/25 Fall risk assessment: No Falls in past year Last assessed Fall Risk: 09/12/25 Dental Screening Dental Screen Date: 05/19/25 HPI HPI Comments History of Present Illness Details History of Present Illness The patient is a 80 year old female presenting for a follow-up visit for management of multiple chronic conditions. She has a history of being overweight, hypertension, hypercholesterolemia, impaired glucose tolerance, GERD, and osteoporosis. Regarding her impaired glucose tolerance, blood work from April 2025 showed a fasting blood sugar of 107 mg/dL and a hemoglobin A1c of 6.4%. Her HbA1c has b een trending upward since 2020, with previous values of 5.7, 5.8, 6.0, and 6.1. The patient acknowledges that she eats a lot. Her hypertension is managed with amlodipine 5 mg, lisinopril 40 mg, and m etoprolol 200 mg, all taken once a day. For hypercholesterolemia, she takes simvastatin 5 mg at bedtime with a stated LDL goal of less than 130 and triglyceride goal of less than 150. A history of a pulmonary nodule is being monitored, and a CT scan in July 2025 showed the nodules were stable with no new nodules seen. She follows up with [facility] for dry eye syndrome and was last seen in August. Her last bone density scan was in March 2024. She is due for a screening mammogram and colonoscopy. Her last general follow-up was in May 2025. Health Maintenance The patient is due for a screening mammogram and colonoscopy. She was advised to schedule these procedures. She was given a lab order to have blood work done in three months, and she plans to do it in January after she returns from travel. Social History - Nutritional Intake: The patient acknow ledges eating a lot and consuming sweets. - Substance Use: The patient drinks coff ee. - Functional Status: The patient reports she does not go outside as much when it is cold. Results - Labs (April 2025): - Complete blood count: Normal, with no anemia. - Comprehensive metabolic panel: Electro lytes and renal function were normal. Liver numbers were good. Fasting blood sugar was 107 mg/dL. - Hemoglobin A1c: 6.4%. - Lipid panel: Cholesterol is high. - Imaging: - Chest CT (July 2025): Showed stabl e pulmonary nodules with no new nodules seen. - Bone Density Scan (March 2024): Results not detailed. [facility] Medical History Multinodular thyroid Overweight (BMI 25.0-29.9) Abnormal finding on CT scan SOB (shortness of breath) on exertion Precordial chest pain Chest pain Pure hypercholesterolemia Benign essential hypertension Local reaction to immunization Post-nasal drip GERD (gastroesophageal reflux disease) Breast cancer screening by mammogram RLQ abdominal pain Osteoporosis Ulnar neuropathy Hypercholesterolemia Vitamin D deficiency Hx of osteoporosis GERD (gastroesophageal reflux disease) Hx of solitary pulmonary nodule Surgical History History of cataract surgery H/O colonoscopy History of cholecystectomy History of appendectomy Family History Father Hypertension Mother No problems noted. Brother Enlarged heart Social History (Updated 05/19/25 @ 10:58 by Brenda Guadalupe MD) Household Members: Family, Children and Friend(s) Housing: House Alcohol intake: current Alcohol intake frequency: does not drink Comment: once a month 1 beer Patient Tobacco Use Status: Never used Tobacco Tobacco use type: Cigarette Years Smoked: childhood for months e-Cigarette/Vaping Use: Never Used Second Hand Smoke Exposure: No service: No Current occupational status: retired Cognitive needs: No Hearing needs: No Vision needs: No Questionnaire Thrive Questionnaire Date Thrive assessed: 05/19/25 I am a: Patient What is your living situation today?: I have a steady place to live Within the past 12 months, did the food you bought not last and you didn't have the money to get more?: Never true Within the past 12 months, did you worry whether your food would run out before you got money to buy more?: Sometimes True Do you have trouble paying for medicines?: No Do you have trouble getting transportation to medical appointments?: No Do you have trouble paying your heating and electricity bill?: No Do you have trouble taking care of your child, family member or friend?: No Do you have trouble with day-to-day activities such as bathing, preparing meals, shopping, managing finances, etc.?: No Are you currently unemployed and looking for a job?: No Are you interested in more education?: Yes Currently or been in a relationship where the following occur: No concerns reported THRIVE Score: 1 ALPA-7 AMB Questionnaire ALPA-7 Date ALPA - 7 assessed: 05/19/25 Source: Developed by Drs. Francisco Aguirre, Loretta Deleon, Sedrick Roman and colleagues, with an educational calderon from [employer]. Review of Systems Narrative Review of Systems - Ophthalmologic: Reports dry eye syndrome. - Constitutional: Reports being overweight. Physical exam (Primary Care) Vital Signs: Last Vital Signs Pulse 61 09/12/25 14:52 BP 120/62 09/12/25 14:52 Pulse Ox 98 09/12/25 14:52 Oxygen Delivery Method Room Air 09/12/25 14:52 BMI result Body Mass Index 26.3 Tobacco/Smoking Status: Tobacco use Status Tobacco use date assessed 05/19/25 09/12/25 14:56 Patient Tobacco Use Status Never used Tobacco 09/12/25 14:56 Tobacco use type Cigarette 09/12/25 14:56 e-Cigarette/Vaping Use Never Used 09/12/25 14:56 Thrive Assessment: Date of Thrive Assessment Date Thrive assessed 05/19/25 09/12/25 14:56 Currently or been in a relationship where the following occur: No concerns reported Narrative Physical Exam - Respiratory: Lungs were auscultated. Const General: alert; No acute distress Eyes Conjunctivae: conjunctivae normal Resp Auscultation: clear to auscultation bilaterally Cardio Rate: regular rate Rhythm: regular rhythm GI Inspection: Yes normal to inspection Extrem General: Yes normal to inspection and No edema Coding Level of Care Code Est Pt Level 4 (16884) Add On Problem Visit Only Diagnoses Benign essential hypertension I10 Hypercholesterolemia E78.00 Impaired glucose tolerance R73.02 Overweight (BMI 25.0-29.9) E66.3 Gastroesophageal reflux disease without esophagitis K21.9 Esophagitis presence: without esophagitis Pulmonary nodule, left R91.1 Assessment & Plan Assessment & Plan (1) Benign essential hypertension: Code(s): I10 - Essential (primary) hypertension Category: Medical Plan: Continue with blood pressure medication. Decrease salt intake and exercise on amlodipine 5 mg once a day lisinopril 40 mg once a day metoprolol 200 mg once a day (2) Hypercholesterolemia: Code(s): E78.00 - Pure hypercholesterolemia, unspecified Category: Medical Plan: Avoid fried foods, chicken skin, eggs, butter margarine, pastries and meat. Be it pork or beef they have a lot of cholesterol LDL goal of less than 130 and triglyceride of less than 150 on simvastatin 5 mg at bedtime. Patient was advis ed to get blood work (3) Impaired glucose tolerance: Code(s): R73.02 - Impaired glucose tolerance (oral) Category: Medical Plan: Decrease the amount of carbohydrate intake, pasta, bread, rice and potatoes are all sugar and that is aside from all the sweet stuff, remember that fruits are good but they are Sweet also. (4) Overweight (BMI 25.0-29.9): Code(s): E66.3 - Overweight Category: Medical Plan: Diet and exercise (5) GERD (gastroesophageal reflux disease): Code(s): K21.9 - Gastro-esophageal reflux disease without esophagitis Category: Medical Qualifiers: Esophagitis presence: without esophagitis Qualified Code(s): K21.9 - Gastro-esophageal reflux disease without esophagitis Plan: Avoid the foods that causes that usually spicy foods, tomato products, juices, coffee, soda and foods that your sensitive to. After eating do not lie down, allow 3-4 hours before in lie down. And keep the head of bed above 30 degrees to avoid the acid from going up. (6) Pulmonary nodule, left: Comment: February 2023Stable pulmonary nodules and back to earliest chest CT exam April [address]22. Chest CT follow-up in one year recommend 07/2025 stable Code(s): R91.1 - Solitary pulmonary nodule Category: Medical Plan: July 2025 CT scan stable Plan Plan Patient was informed and verbally consented to the use of an ambient scribe for clinic note documentation during this visit. 1. Impaired Glucose Tolerance The patient's hemoglobin A1c is 6.4%, which has been trending up since 2020 and is approaching the diagnostic threshold for diabetes of 6.5%. Her fasting blood sugar was recently 107 mg/dL. The plan includes counseling on diet and exercise, specifically advising her to reduce food and sweet intake, especially at night. Repeat blood work will be ordered for three months from now to monitor her sugar levels. 2. Hypercholesterolemia The patient's cholesterol is high despite treatment with simvastatin 5 mg at bedtime. The treatment goal is an LDL of less than 130 and triglycerides less than 150. A new order for blood work will be provided to recheck her cholesterol levels in three months. 3. Essential Hypertension The patient's blood pressure is managed with amlodipine 5 mg, lisinopril 40 mg, and metoprolol 200 mg, each taken once daily. The plan is to continue the current medication regimen. 4. Pulmonary Nodule, Stable A CT scan from July 2025 demonstrated stable pulmonary nodules. The current plan is continued observation. Discussion Notes I reviewed the patient's recent lab work with her, emphasizing that her hemoglobin A1c of 6.4% is trending upward and is close to the diagnostic threshold of 6.5% for diabetes. I explained the risk of developing diabetes given these trends and her self-reported high food intake. We discussed that her cholesterol remains high, and I provided an order for repeat blood work in three months to monitor both her glucose and cholesterol levels. She agreed to have the labs done upon her return from travel in January. I also reminded her that she is due for a screening mammogram and colonoscopy. I advised her to be mindful of her diet, particularly to reduce her intake of sweets and food at night, and suggested oatmeal as an alternative. Finally, I reassured her that the pulmonary nodule seen on her recent CT scan was stable. Patient Instructions - Continue your current medications for blood pressure and cholesterol: amlodipine 5 mg, lisinopril 40 mg, metoprolol 200 mg, and simvastatin 5 mg. - Please work on your diet and exercise. Try to eat less, especially sweets and at night, to help control your blood sugar. Oatmeal can be a good option for dinner. - You are due for a screening mammogram and a colonoscopy. Please schedule these appointments. - We need to recheck your blood sugar and cholesterol levels. I have given you an order for blood work to be done in about three months. You can do this when you get back in January. - Continue to see your eye doctor for your dry eye syndrome. Medications: Refilled amlodipine 5 mg PO DAILY 90 tabs 3RF 90 days I10 - Essential (primary) hyp ertension metoprolol succinate ER 200 mg PO DAILY 90 tabs 3RF I10 - Essential (primary) hypertension simvastatin 5 mg PO BEDTIME 90 tabs 3RF E78.00 - Pure hypercholesterolemia, unspecified lisinopril 40 mg PO DAILY 90 tabs 3RF I10 - Essential (primary) hypertension omeprazole 20 mg PO DAILY 90 caps 2RF K21.9 - Gastro-esophageal reflux disease without esophagitis
== END 2025-09-12 15:21 | disposition home or self-care (01) ==
LOC: HO.HMCH 14:41
PROVIDERS: PCP Internal Medicine; Visit Provider Internal Medicine
DX: I10 Essential (primary) hypertension (principal); E78.00 Pure hypercholesterolemia, unspecified; R73.02 Impaired glucose tolerance (oral); E66.3 Overweight; K21.9 Gastro-esophageal reflux disease without esophagitis; R91.1 Solitary pulmonary nodule

== ENCOUNTER → 2025-09-12 14:40 | Outpatient (BNVA) | payer MEDICARE, MEDICAID, SELFPAY | PROVIDERS: PCP Internal Medicine; Visit Provider Internal Medicine | DX: I10 Essential (primary) hypertension (principal); E78.00 Pure hypercholesterolemia, unspecified; R73.02 Impaired glucose tolerance (oral); E66.3 Overweight; Z68.26 Body mass index [BMI] 26.0-26.9, adult; K21.9 Gastro-esophageal reflux disease without esophagitis; R91.1 Solitary pulmonary nodule; Z71.3 Dietary counseling and surveillance | CPT/HCPCS: 99212 ==